=== PATIENT | male | born 1980 | race Caucasian/White ===

== ENCOUNTER 2017-07-14 21:33 | Emergency (ER) | payer OTHER ==
[2017-07-14 22:14] LABS: Basophils % (A) 0 %; Eosinophils # (A) 0.1 k/uL (0-0.7); Eosinophils % (A) 1 %; HCT 41.9 % (39.0-53.0); HGB 14.1 gm/dL (13.0-17.5); Lymphocytes # (A) 2.6 k/uL (1.0-4.8); Lymphocytes % (A) 29 %; MCH 30.2 pg (25.0-35.0); MCHC 33.7 g/dL (31.0-37.0); MCV 89.6 fL (80.0-100.0); Mean Platelet Volume 6.9; Monocytes # (A) 0.4 k/uL (0-1.0); Monocytes % (A) 4 %; Neutrophils # (A) 5.7 k/uL (1.3-7.7); Neutrophils % (A) 64 %; Platelet Count 249 k/uL (150-450); RBC 4.68 m/uL (4.30-5.90); RDW 13.7 % (11.5-15.5); WBC 8.9 k/uL (3.8-10.6)
--- NOTE | 2017-07-14 22:18 | ED ---
Chest Pain HPI - General Chief Complaint: Chest Pain Stated Complaint: Chest Pain/ETOH Time Seen by Provider: 07/14/17 21:52 Source: patient Mode of arrival: EMS Limitations: no limitations - History of Present Illness MD Complaint: chest pain Onset/Timin -: days(s) Onset: during rest Pain Location: substernal, epigastric Pain Radiation: none Severity: moderate Quality: aching, other (Burning) Consistency: constant Improves With: nothing Worsens With: nothing Treatments Prior to Arrival: none - Related Data Allergies Allergy/AdvReac Type Severity Reaction Status Date / Time No Known Allergies Allergy Verified 07/14/17 21:36 Review of Systems ROS Statement: Those systems with pertinent positive or pertinent negative responses have been documented in the HPI. ROS Other: All systems not noted in ROS Statement are negative. Constitutional: Denies: fever, chills Respiratory: Denies: cough, dyspnea Cardiovascular: Reports: chest pain. Denies: palpitations, edema, syncope Gastrointestinal: Denies: abdominal pain, vomiting, diarrhea Genitourinary: Denies: dysuria, hematuria Musculoskeletal: Denies: back pain Skin: Denies: rash Neurological: Denies: headache EKG Findings - EKG Results: EKG: interpreted by JOHNNIE KAY, sinus rhythm (Rate 94 bpm), normal axis, normal QRS, normal ST/T - ME, Pacemaker, Normal: Normal tracing: normal tracing Past Medical History Additional Past Medical History / Comment(s): Alcoholism History of Any Multi-Drug Resistant Organisms: None Reported Past Surgical History: No Surgical Hx Reported Past Psychological History: No Psychological Hx Reported Smoking Status: Current every day smoker Past Alcohol Use History: Abuse, Heavy Past Drug Use History: None Reported General Exam Limitations: no limitations General appearance: alert, in no apparent distress Head exam: Present: atraumatic, normocephalic Eye exam: Present: normal appearance. Absent: scleral icterus, conjunctival injection Respiratory exam: Present: normal lung sounds bilaterally. Absent: respiratory distress, wheezes, rales, rhonchi, stridor Cardiovascular Exam: Present: regular rate, normal rhythm, normal heart sounds. Absent: systolic murmur, diastolic murmur, rubs, gallop GI/Abdominal exam: Present: soft. Absent: distended, tenderness, guarding, rebound, rigid Extremities exam: Present: normal inspection, normal capillary refill. Absent: pedal edema, calf tenderness Back exam: Present: normal inspection. Absent: CVA tenderness (R), CVA tenderness (L) Skin exam: Present: warm, dry, intact, normal color. Absent: rash Course Vital Signs 07/14/17 07/14/17 07/15/17 21:36 22:39 00:00 Temperature 99.8 F H Pulse Rate 86 88 100 Respiratory 18 18 18 Rate Blood Pressure 111/66 88/51 O2 Sat by Pulse 100 98 99 Oximetry 07/15/17 07/15/17 07/15/17 01:45 03:07 04:22 Temperature Pulse Rate 88 85 89 Respiratory 18 18 16 Rate Blood Pressure 87/48 99/59 90/60 O2 Sat by Pulse 98 98 99 Oximetry 07/15/17 07/15/17 07:00 09:00 Temperature 99.2 F Pulse Rate 99 89 Respiratory 20 18 Rate Blood Pressure 91/59 107/68 O2 Sat by Pulse 95 Oximetry Disposition Clinical Impression: Alcohol intoxication Disposition: HOME SELF-CARE Condition: Fair Instructions: Alcohol Intoxication (ED) Is patient prescribed a controlled substance at d/c from ED?: No Referrals: None,Stated [REFERRING] - 1-2 days
[2017-07-14 22:24] LABS: INR 1.1 (<1.2); Partial Thromboplastin Time 22.6 sec (22.0-30.0); Prothrombin Time 10.6 sec (9.0-12.0)
[2017-07-14 22:32] LABS: ALT 46 U/L (21-72); AST 36 U/L (17-59); Albumin 4.3 g/dL (3.5-5.0); Alkaline Phosphatase 73 U/L (38-126); Amylase 57 U/L (30-110); Anion Gap 16 mmol/L; Blood Urea Nitrogen 11 mg/dL (9-20); Calcium 8.9 mg/dL (8.4-10.2); Carbon Dioxide 25 mmol/L (22-30); Chloride 109 mmol/L (98-107); Glucose 82 mg/dL (74-99); Lipase 465 U/L (23-300); Magnesium 2.6 mg/dL (1.6-2.3); Potassium 3.8 mmol/L (3.5-5.1); Sodium 150 mmol/L (137-145); Total Bilirubin 0.5 mg/dL (0.2-1.3); Total Protein 6.4 g/dL (6.3-8.2)
[2017-07-14 22:36] LABS: Creatine Kinase 157 U/L (55-170)
--- NOTE | 2017-07-14 22:38 | XR ---
EXAM: XR Chest, 2 Views CLINICAL HISTORY: ITS.REASON XR Reason: Chest Pain TECHNIQUE: Frontal and lateral views of the chest. COMPARISON: No relevant prior studies available. FINDINGS: Lungs: Unremarkable. No consolidation. Pleural space: Unremarkable. No pneumothorax. Heart: Unremarkable. No cardiomegaly. Mediastinum: Unremarkable. Bones/joints: Unremarkable. IMPRESSION: Normal chest x-rays.
[2017-07-14 22:50] LABS: Creatine Kinase MB 0.7 ng/mL (0.0-2.4); Troponin I <0.012 ng/mL (0.000-0.034)
[2017-07-15 09:01] VITALS: BP 107/68; PULSE 89; RESP 18; TEMP 99.2
== END 2017-07-15 09:01 | disposition home or self-care (01) ==
LOC: EC 21:33
DX: F10.129 Alcohol abuse with intoxication, unspecified (principal); R07.2 Precordial pain; R10.13 Epigastric pain; F17.200 Nicotine dependence, unspecified, uncomplicated
CPT/HCPCS: 36415; 71046; 80053; 80320; 82150; 82550; 82553; 83690; 83735; 84484; 85025; 85610; 85730; 93005; 99285

== ENCOUNTER 2017-09-12 16:37 | Inpatient (IN) | payer MEDICAID, OTHER ==
--- NOTE | 2017-09-12 17:39 | ED ---
General Adult HPI - General Chief complaint: Psychiatric Symptoms Stated complaint: Mental Health Source: patient Mode of arrival: ambulatory Limitations: no limitations - History of Present Illness Initial comments: HPI Macro Chief Complaint: 37-year-old male past medical history of daily EtOH use and history of withdrawal presents with suicidal ideation. History of Present Illness: Patient was brought in by EMS. Patient was contemplating suicide. Patient states that he was clinic [facility]. His friends urged him to come to the emergency department. Patient has history of suicidal ideation the past. He reports having attempted however is not willing to go into detail as to what happened during his last suicide attempt. Patient is a daily EtOH drinker. He states he drinks several alcoholic beverages a day. Patient reports having had delirium tremens in the past. She denies any symptoms at this time. He does report drinking today. Denies any psychiatric history. No auditory or visual hallucinations. No history of psychiatric disease. Past Medical History: Alcohol abuse, alcohol withdrawal Past Surgical History:[reviewed, none to report] Social History: Heavy alcohol drinker on a daily basis, regular tobacco Family History: reviewed and noncontributory The ROS documented in this emergency department record has been reviewed and confirmed by me. Those systems with pertinent positive or negative responses have been documented in the HPI. All other systems are other negative and/or noncontributory. - Related Data Home Medications Medication Instructions Recorded Confirmed Multivitamins, Thera [Multivitamin 1 tab PO DAILY 09/12/17 09/12/17 (formulary)] Allergies Allergy/AdvReac Type Severity Reaction Status Date / Time amoxicillin Allergy Swelling Verified 09/12/17 16:59 Review of Systems ROS Statement: Those systems with pertinent positive or pertinent negative responses have been documented in the HPI. ROS Other: All systems not noted in ROS Statement are negative. Past Medical History Additional Past Medical History / Comment(s): Alcoholism History of Any Multi-Drug Resistant Organisms: None Reported Past Surgical History: No Surgical Hx Reported Past Psychological History: No Psychological Hx Reported Smoking Status: Current every day smoker Past Alcohol Use History: Abuse, Heavy Past Drug Use History: None Reported General Exam - General Exam Comments Initial Comments: Vitals: Signs upon arrival are within acceptable limits PHYSICAL EXAM: General Impression: Alert and oriented x3, not in acute distress HEENT: Normocephalic atraumatic, extra-ocular movements intact, pupils equal and reactive to light bilaterally, mucous membranes moist. Cardiovascular: Heart regular rate and rhythm, S1&S2 audible, no murmurs, rubs or gallops Chest: Lungs clear to auscultation bilaterally, no rhonchi, no wheeze, no rales Abdomen: Bowel sounds present, abdomen soft, non-tender, non-distended, no organomegaly Musculoskeletal: Pulses present and equal in all extremities, no peripheral edema Motor: Power 5/5 bilaterally, no focal deficits noted Neurological: CN II-XII grossly intact, no focal motor or sensory deficits noted Skin: Intact with no visualized rashes Psych: Normal affect and mood Limitations: no limitations Course Vital Signs 09/12/17 09/12/17 09/12/17 16:38 19:12 23:01 Temperature 98.2 F 98.2 F Pulse Rate 120 H 95 72 Respiratory 20 20 20 Rate Blood Pressure 125/91 128/78 120/65 O2 Sat by Pulse 96 95 98 Oximetry Medical Decision Making - Medical Decision Making 37-year-old male with past medical history of alcohol withdrawal and daily alcohol use presents with suicidal ideation. Patient has no psychiatric symptoms. No signs of psychosis at this time. Vital signs are stable. Patient does not appear to be withdrawals at this time. Breathalyzer test shows elevated EtOH level. Rapid urine drug screen obtained. Patient is medically cleared and evaluated by EPS. Patient to be admitted to inpatient psych for further psychiatric care - Lab Data Result diagrams: 09/13/17 07:26 09/13/17 07:26 Lab Results 09/12/17 Range/Units 18:34 Urine Opiates Screen Not Detected (NotDetected) Ur Oxycodone Screen Not Detected (NotDetected) Urine Methadone Screen Not Detected (NotDetected) Ur Propoxyphene Screen Not Detected (NotDetected) Ur Barbiturates Screen Not Detected (NotDetected) U Tricyclic Antidepress Not Detected (NotDetected) Ur Phencyclidine Scrn Not Detected (NotDetected) Ur Amphetamines Screen Not Detected (NotDetected) U Methamphetamines Scrn Not Detected (NotDetected) U Benzodiazepines Scrn Not Detected (NotDetected) Urine Cocaine Screen Not Detected (NotDetected) U Marijuana (THC) Screen Not Detected (NotDetected) Disposition Clinical Impression: Suicidal ideation Disposition: TRANSFER TO PSYCH HOSP/UNIT
[2017-09-12] MEDS ORDERED: LORazepam 1 MG TAB PO STA (18:45)
[2017-09-12 18:59] LABS: Amphetamine Screen,Urine Not Detected (NotDetected); Barbiturate Screen,Urine Not Detected (NotDetected); Benzodiazepines Screen,Urine Not Detected (NotDetected); Cocaine Screen,Urine Not Detected (NotDetected); Methadone Screen, Urine Not Detected (NotDetected); Opiate Screen,Urine Not Detected (NotDetected); Oxycodone Screen, Urine Not Detected (NotDetected); Phencyclidine Screen,Urine Not Detected (NotDetected); Tricyclic Antidepressant,Urine Not Detected (NotDetected); Urn Cannabinoid Scrn Not Detected (NotDetected)
[2017-09-12] MEDS ORDERED: MAGNESIUM HYDROXIDE 2,400 MG/10 ML CUP PO PRN (23:14)
[2017-09-12] MEDS ORDERED: MAG HYDROX/AL HYDROX/SIMETH 30 ML CUP PO PRN (23:14)
[2017-09-12] MEDS ORDERED: ZIPRASIDONE 20 MG VIAL IM PRN (23:14)
[2017-09-12] MEDS ORDERED: ACETAMINOPHEN TAB 325 MG TAB PO PRN (23:14)
[2017-09-12] MEDS ORDERED: LORazepam 2 MG/ML INJ IM PRN (23:16)
[2017-09-12] MEDS: LORazepam 1 MG TAB PO PRN (23:41)
[2017-09-13 07:44] LABS: Basophils % (A) 1 %; Eosinophils # (A) 0.1 k/uL (0-0.7); Eosinophils % (A) 3 %; HCT 45.2 % (39.0-53.0); HGB 15.4 gm/dL (13.0-17.5); Lymphocytes # (A) 1.6 k/uL (1.0-4.8); Lymphocytes % (A) 39 %; MCH 31.2 pg (25.0-35.0); MCV 91.9 fL (80.0-100.0); Mean Platelet Volume 6.7; Monocytes # (A) 0.2 k/uL (0-1.0); Monocytes % (A) 5 %; Neutrophils # (A) 2.1 k/uL (1.3-7.7); Neutrophils % (A) 51 %; Platelet Count 169 k/uL (150-450); RBC 4.92 m/uL (4.30-5.90); RDW 14.7 % (11.5-15.5); WBC 4.1 k/uL (3.8-10.6)
[2017-09-13 08:02] LABS: ALT 86 U/L (21-72); AST 105 U/L (17-59); Alkaline Phosphatase 63 U/L (38-126); Anion Gap 10 mmol/L; Blood Urea Nitrogen 14 mg/dL (9-20); Calcium 9.9 mg/dL (8.4-10.2); Carbon Dioxide 29 mmol/L (22-30); Chloride 104 mmol/L (98-107); Glucose 96 mg/dL (74-99); Potassium 4.7 mmol/L (3.5-5.1); Sodium 143 mmol/L (137-145); Total Bilirubin 2.4 mg/dL (0.2-1.3); Total Protein 6.1 g/dL (6.3-8.2)
[2017-09-13] MEDS: NICOTINE 14MG/24HR PATCH TRANSDERM SCH ×2 (09:24→12:04)
[2017-09-13] MEDS ORDERED: DIPHENOX-ATROP 2.5-0.025 MG 1 EACH TAB PO PRN (09:48)
--- NOTE | 2017-09-13 09:48 | P.HP ---
Psychiatric H&P - . H&P Date: 09/13/17 History & Physical: Identification data: The patient is a 37-year-old single occasion male who has history of alcohol use disorder. He presents psychiatric unit voluntarily with complaints of depression and suicidal ideation. History of present illness: A friend brought him to the ER yesterday. The patient told his friend that he wanted to and talked about wanting to jump off the bridge. He told the EPS nurse that he began having thoughts of suicide after he lost his apartment and lost his phone. He described a history of alcohol use beginning in early adolescence of (around 13 or 14 years old). In retrospect, his alcohol use became a problem when he is 17 years old. He denied significant period of abstinence outside of a substance abuse treatment program. He lived at a three-quarter house, [facility], after he returned to [place] in March 2017 until July 2017. He was out of the [facility] for 2 weeks when he relapsed to alcohol. He went to [facility] for detox and after he completed the program he returned to [facility]. He moved into a flat with a friend last . One of the rules of the apartment was no alcohol or drinking on the premises. He relapsed alcohol the day after he moved into the apartment. The landlord learned of his drinking and told him to leave. He has history of severe alcohol withdrawal including alcohol withdrawal seizures and alcohol withdrawal delirium. He has had medical admissions due to the severity of the alcohol withdrawal. He currently describes nausea, tremor, sweating and increased anxiety. He denied currently experiencing tactile, auditory or visual disturbances. He recognizes alcohol use is a problem but is unable to control his use of suddenly structured program. He denied use of other drugs to get high, help him sleep or changes mood. He described feelings of depression including sadness, hopelessness, helplessness and worthlessness. He is self reproach for and ruminates over his alcohol use and the consequences of his alcohol use. He did not express delusions of guilt and denied hearing accusatory denunciatory voices or experiencing threatening visual hallucinations. He has thoughts of and at times wishes he were but denied history of suicide attempts or gestures. He has difficulty falling and staying asleep. He believes that he is recently lost weight. He described tiredness and fatigue. He denied obsessions or compulsions. He denied anxiety that built up to crescendo consistent with panic attacks. He denied history of psychotic symptoms such as auditory or visual or olfactory hallucinations (outside of alcohol withdrawal), ideas reference etc. Past psychiatric history: He denied prior psychiatric hospitalizations. He denied history of mental health treatment. Substance use history: He attended a total of 6 alcohol rehabilitation programs- [facility] twice, [facility] twice and once at [facility]. He has resided in several three-quarter houses. Medical history: Alcohol withdrawal seizures and alcohol withdrawal delirium Family psychiatric/substance use history: He states that his father, uncles and grandfather all had alcohol use problems. Legal history: He believes he has a warrant for charges of open intoxication. He does not have a license and never had an OWI charge. Social history: He was born and raised in [place]. He is single. He has 3 children ages 12, 7 and 6 with a long-term girlfriend. They're living with the girlfriend in [place]. He moved to [place] from his 2016 at the at the behest of his girlfriend. She thought that they moved from [place] with help with his alcohol use problems. However he continue drinking in [place] and she asked him to leave. He has worked unskilled factory jobs. He is currently unemployed and has no income. Mental status examination he presented as a tall thin, almost cachectic, male with male pulled pattern balding. He made eye contact and appeared to attend to the interview. He had no prominent physical abnormalities or distinguishing features. He had a distressed facial expression. He was alert and oriented to person, place and time. He showed psychomotor retardation but no abnormal movements. Speech was spontaneous with decreased rate, rhythm and volume. His affect was depressed and unreactive. He described wishes but denied current suicidal ideation. He denied homicidal ideation. He expressed feelings of hopelessness, helplessness and worthlessness. He did not express ideas reference, paranoid ideation or delusional thoughts. His thinking was concrete but his associations were coherent and logical. He denied hallucinations and did not appear to be responding to internal stimuli. Allergies Allergy/AdvReac Type Severity Reaction Status Date / Time amoxicillin Allergy Swelling Verified 09/12/17 16:59 Vital Signs Temp 97.9 F 09/13/17 06:08 Pulse 62 09/13/17 06:08 Resp 16 09/13/17 06:08 BP 109/66 09/13/17 06:08 Pulse Ox 94 L 09/12/17 23:35 Intake & Output 09/12/17 09/13/17 09/13/17 18:59 06:59 18:59 Weight 58.967 kg 53.932 kg Laboratory Last Values WBC 4.1 k/uL (3.8-10.6) 09/13/17 07:26 RBC 4.92 m/uL (4.30-5.90) 09/13/17 07:26 Hgb 15.4 gm/dL (13.0-17.5) 09/13/17 07:26 Hct 45.2 % (39.0-53.0) 09/13/17 07:26 MCV 91.9 fL (80.0-100.0) 09/13/17 07:26 MCH 31.2 pg (25.0-35.0) 09/13/17 07: MCHC 34.0 g/dL (31.0-37.0) 09/13/17 07:26 RDW 14.7 % (11.5-15.5) 09/13/17 07:26 Plt Count 169 k/uL (150-450) 09/13/17 07:26 Neutrophils % 51 % 09/13/17 07:26 Lymphocytes % 39 % 09/13/17 07:26 Monocytes % 5 % 09/13/17 07:26 Eosinophils % 3 % 09/13/17 07:26 Basophils % 1 % 09/13/17 07:26 Neutrophils # 2.1 k/uL (1.3-7.7) 09/13/17 07:26 Lymphocytes # 1.6 k/uL (1.0-4.8) 09/13/17 07:26 Monocytes # 0.2 k/uL (0-1.0) 09/13/17 07:26 Eosinophils # 0.1 k/uL (0-0.7) 09/13/17 07:26 Basophils # 0.0 k/uL (0-0.2) 09/13/17 07:26 Sodium 143 mmol/L (137-145) 09/13/17 07:26 Potassium 4.7 mmol/L (3.5-5.1) 09/13/17 07:26 Chloride 104 mmol/L (98-107) 09/13/17 07:26 Carbon Dioxide 29 mmol/L (22-30) 09/13/17 07:26 Anion Gap 10 mmol/L 09/13/17 07:26 BUN 14 mg/dL (9-20) 09/13/17 07:26 Creatinine 0.91 mg/dL (0.66-1.25) 09/13/17 07:26 Est GFR (CKD-EPI)AfAm >90 (>60 ml/min/1.73 sqM) 09/13/17 07:26 Est GFR (CKD-EPI)NonAf >90 (>60 ml/min/1.73 sqM) 09/13/17 07:26 Glucose 96 mg/dL (74-99) 09/13/17 07:26 Calcium 9.9 mg/dL (8.4-10.2) 09/13/17 07:26 Total Bilirubin 2.4 mg/dL (0.2-1.3) H 09/13/17 07:26 AST 105 U/L (17-59) H 09/13/17 07:26 ALT 86 U/L (21-72) H 09/13/17 07:26 Alkaline Phosphatase 63 U/L (38-126) 09/13/17 07:26 Total Protein 6.1 g/dL (6.3-8.2) L 09/13/17 07:26 Albumin 4.0 g/dL (3.5-5.0) 09/13/17 07:26 TSH 1.600 mIU/L (0.465-4.680) 09/13/17 07:26 Urine Opiates Screen Not Detected (NotDetected) 09/12/17 18:34 Ur Oxycodone Screen Not Detected (NotDetected) 09/12/17 18:34 Urine Methadone Screen Not Detected (NotDetected) 09/12/17 18:34 Ur Propoxyphene Screen Not Detected (NotDetected) 09/12/17 18:34 Ur Barbiturates Screen Not Detected (NotDetected) 09/12/17 18:34 U Tricyclic Antidepress Not Detected (NotDetected) 09/12/17 18:34 Ur Phencyclidine Scrn Not Detected (NotDetected) 09/12/17 18:34 Ur Amphetamines Screen Not Detected (NotDetected) 09/12/17 18:34 U Methamphetamines Scrn Not Detected (NotDetected) 09/12/17 18:34 U Benzodiazepines Scrn Not Detected (NotDetected) 09/12/17 18:34 Urine Cocaine Screen Not Detected (NotDetected) 09/12/17 18:34 U Marijuana (THC) Screen Not Detected (NotDetected) 09/12/17 18:34 09/13/17 09:27 Assessment and Plan Assessment: He is a 37-year-old single male with a history of alcohol use disorder. He presented to the psychiatric unit with complaints of depression and suicidal ideation. He has no history of mental health treatment but he is had multiple substance abuse treatment episodes. He denied history of use of other drugs and his urine drug screen was negative for drugs of abuse. He history of severe alcohol withdrawal, cocaine by seizures and delirium. He may be treated inpatient psychiatric unit unless he experiences worsening alcohol withdrawal symptoms. He will be transferred to the medical unit if he experienced a seizure or has signs and symptoms of a delirium. 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 Safety precautions. CIWA with Ativan for alcohol withdrawal. Lomotil and Zofran for alcohol withdrawal symptoms. Monitor for signs and symptoms of delirium. Consult medicine for initial physical exam and medical history. tobacco farmworker to complete initial psychosocial assessment. Evaluate clinical status response to treatment daily basis. Encourage participation in therapeutic groups and activities.
[2017-09-13 09:50] VITALS: BMI 15.3
[2017-09-13] MEDS: LORazepam 1 MG TAB PO PRN ×2 (12:04→21:17)
[2017-09-13] MEDS: MULTIVITAMINS, THERA 1 EACH TAB PO SCH (12:04)
[2017-09-13] MEDS: ONDANSETRON 4 MG TAB PO PRN (12:04)
--- NOTE | 2017-09-13 14:15 | P.CONS ---
History of Present Illness - Reason for Consult Medical clearance - History of Present Illness 35-year-old admitted secondary to severe depression, suicidal ideations. Patient doesn't have any major medical problems upon questioning he did complain of some psychosomatic symptoms of one episode of diarrhea 1 episode of nausea. Patient was bit tachycardic secondary to anxiety. TSH within normal limits. Review of Systems REVIEW OF SYSTEMS: CONSTITUTIONAL: No fever, no malaise, no fatigue. HEENT: No recent visual problems or hearing problems. Denied any sore throat. CARDIOVASCULAR: No chest pain, orthopnea, PND, no palpitations, no syncope. PULMONARY: No shortness of breath, no cough, no hemoptysis. GASTROINTESTINAL: No diarrhea, no nausea, no vomiting, no abdominal pain. Normoactive bowel sounds. NEUROLOGICAL: No headaches, no weakness, no numbness. HEMATOLOGICAL: Denies any bleeding or petechiae. GENITOURINARY: Denies any burning micturition, frequency, or urgency. MUSCULOSKELETAL/RHEUMATOLOGICAL: Denies any joint pain, swelling, or any muscle pain. ENDOCRINE: Denies any polyuria or polydipsia. The rest of the 14-point review of systems is negative. Past Medical History Additional Past Medical History / Comment(s): Alcoholism History of Any Multi-Drug Resistant Organisms: None Reported Past Surgical History: No Surgical Hx Reported Past Psychological History: No Psychological Hx Reported Smoking Status: Current every day smoker Past Alcohol Use History: Abuse, Heavy Past Drug Use History: None Reported Medications and Allergies Home Medications Medication Instructions Recorded Confirmed Type Multivitamins, Thera [Multivitamin 1 tab PO DAILY 09/12/17 09/12/17 History (formulary)] Allergies Allergy/AdvReac Type Severity Reaction Status Date / Time amoxicillin Allergy Swelling Verified 09/12/17 16:59 Physical Exam Vitals: Vital Signs Temp Pulse Pulse Pulse Resp BP BP 09/13/17 12:07 131 H 18 124/85 09/13/17 06:08 97.9 F 62 16 09/12/17 23:35 98.2 F 105 H 16 09/12/17 23:01 98.2 F 72 20 120/65 09/12/17 19:12 95 20 128/78 09/12/17 16:38 98.2 F 120 H 20 125/91 BP Pulse Ox 09/13/17 12:07 09/13/17 06:08 109/66 07/04/18 23:35 116/82 94 L 09/12/17 23:01 98 09/12/17 19:12 95 09/12/17 16:38 96 Intake and Output 09/12/17 09/13/17 09/13/17 22:59 06:59 14:59 Other: Weight 58.967 kg 53.932 kg 53.932 kg PHYSICAL EXAMINATION: GENERAL: The patient is alert and oriented x3, not in any acute distress. Thin built HEENT: Pupils are round and equally reacting to light. EOMI. No scleral icterus. No conjunctival pallor. Normocephalic, atraumatic. No pharyngeal erythema. No thyromegaly. CARDIOVASCULAR: S1 and S2 present. No murmurs, rubs, or gallops. PULMONARY: Chest is clear to auscultation, no wheezing or crackles. ABDOMEN: Soft, nontender, nondistended, normoactive bowel sounds. No palpable organomegaly. MUSCULOSKELETAL: No joint swelling or deformity. EXTREMITIES: No cyanosis, clubbing, or pedal edema. NEUROLOGICAL: Gross neurological examination did not reveal any focal deficits. SKIN: No rashes. Results CBC & Chem 7: 09/13/17 07:26 09/13/17 07:26 Labs: Abnormal Lab Results - Last 24 Hours (Table) 09/13/17 Range/Units 07:26 Total Bilirubin 2.4 H (0.2-1.3) mg/dL AST 105 H (17-59) U/L ALT 86 H (21-72) U/L Total Protein 6.1 L (6.3-8.2) g/dL Assessment and Plan Plan: -Depression and suicidal aeration: Management as per primary service -Sinus tachycardia secondary to anxiety -Nicotine abuse: Counseling was provided -Alcohol abuse counseling was provided Thank you for letting me participate in this patient's care will set up at this time no further recommendations from medicine call us back if needed
[2017-09-14] MEDS: NICOTINE 14MG/24HR PATCH TRANSDERM SCH ×2 (08:20→17:31)
[2017-09-14] MEDS: MULTIVITAMINS, THERA 1 EACH TAB PO SCH (08:20)
[2017-09-14] MEDS: ONDANSETRON 4 MG TAB PO PRN (08:20)
[2017-09-14] MEDS: LORazepam 1 MG TAB PO PRN ×3 (08:20→22:30)
[2017-09-14 11:21] LABS: Amorphous Sediment,Urine Occasional /hpf; Appearance,Urine Turbid (Clear); Bilirubin,Urine Negative (Negative); Blood,Urine Negative (Negative); Color,Urine Yellow; Glucose,Urine (UA) Negative (Negative); Ketones,Urine 1+ (Negative); Leukocyte Esterase,Urine Small (Negative); Mucus,Urine Many /hpf; Nitrite,Urine Negative (Negative); PH, Urine 6.5 (5.0-8.0); Protein,Urine Trace (Negative); RBC,Urine 3 /hpf (0-5); WBC,Urine 8 /hpf (0-5)
--- NOTE | 2017-09-14 16:51 | P.PN ---
Subjective Progress Note Date: 09/14/17 Principal diagnosis: Alcohol withdrawal, alcohol use disorder severe, alcohol induced depressive disorder I reviewed the medical record, interviewed the patient and discussed his treatment and treatment plan during team meeting. He complained of feeling weak and tired. He denied feeling depressed or having thoughts of or suicide. He denied experiencing such withdrawal symptoms as auditory, visual or tactile disturbances. His withdrawal symptoms, according to CIWA scores, having minimal to mild. He spends most of his time in bed. He does not participate in therapeutic groups or activities. He does not initiate social contact with either staff or peers. He called [facility] and obtained in remission for residential substance abuse treatment on 09/17/2017. Medicine consult appreciated. Objective - Vital Signs Vital signs: Vital Signs Temp 97.6 F 09/14/17 06:24 Pulse 129 H 09/14/17 08:55 Resp 20 09/14/17 08:55 BP 126/79 09/14/17 08:55 Pulse Ox 98 09/14/17 06:24 Intake & Output 09/13/17 09/14/17 09/14/17 18:59 06:59 18:59 Weight 53.932 kg - Psychiatric Psychiatric Comment(s): He presented as a thin and lethargic-appearing middle-aged male. He made eye contact and attended to the interview. He had a blunted facial expression. He showed psychomotor retardation but no abnormal movements. Her speech was not spontaneous and had decreased rate, rhythm and volume. His affect was blunted but stable and appropriate. He denied suicidal ideation or wishes. He denied feeling hopeless, helpless or worthless. He did not express phobias, ideas reference, paranoid ideation or delusions. His thinking was concrete but his associations were coherent and logical. He denied hallucinations and did not appear to be responding to internal stimuli. - Labs CBC & Chem 7: 09/13/17 07:26 09/13/17 07:26 Labs: Abnormal Lab Results - Last 24 Hours (Table) 09/14/17 Range/Units 11:00 Urine Protein Trace H (Negative) Urine Ketones 1+ H (Negative) Ur Leukocyte Esterase Small H (Negative) Urine WBC 8 H (0-5) /hpf Amorphous Sediment Occasional H (None) /hpf Urine Mucus Many H (None) /hpf Assessment and Plan Assessment: He is having minimal to mild alcohol withdrawal symptoms. He recognizes the severity of his alcohol use problem and is arrange for residential alcohol rehabilitation treatment (1) Suicidal ideation Current Visit: Yes Status: Resolved Priority: Low Code(s): R45.851 - SUICIDAL IDEATIONS SNOMED Code(s): 5060270 (2) Alcohol withdrawal Current Visit: Yes Status: Acute Priority: Low Code(s): F10.239 - ALCOHOL DEPENDENCE WITH WITHDRAWAL, UNSPECIFIED SNOMED Code(s): 106001325 (3) Alcohol use disorder, severe, dependence Current Visit: Yes Status: Chronic Priority: High Code(s): F10.20 - ALCOHOL DEPENDENCE, UNCOMPLICATED SNOMED Code(s): 581726353 (4) Alcohol-induced depressive disorder with moderate or severe use disorder Current Visit: Yes Status: Acute Priority: Medium Code(s): F10.24 - ALCOHOL DEPENDENCE WITH ALCOHOL-INDUCED MOOD DISORDER; F32.89 - OTHER SPECIFIED DEPRESSIVE EPISODES SNOMED Code(s): 08468924 Plan: Continue psychiatric unit. Safety precautions. CIWA with Ativan for alcohol withdrawal. Lomotil and Zofran for alcohol withdrawal symptoms. Monitor for signs and symptoms of delirium. Discharge 09/17/2017 to [facility] for restrictive substance abuse treatment. Evaluate clinical status response to treatment daily basis. Encourage participation in therapeutic groups and activities.
[2017-09-15] MEDS: MULTIVITAMINS, THERA 1 EACH TAB PO SCH (08:46)
[2017-09-15] MEDS: NICOTINE 14MG/24HR PATCH TRANSDERM SCH (08:46)
[2017-09-15] MEDS: LORazepam 1 MG TAB PO PRN ×2 (08:47→15:24)
[2017-09-15] MEDS: DIVALPROEX ER 500 MG TAB.ER.24H PO SCH ×2 (15:24→20:25)
[2017-09-15] MEDS ORDERED: LORazepam 1 MG TAB PO PRN (16:21)
--- NOTE | 2017-09-15 17:37 | PN ---
PROGRESS NOTE DATE OF SERVICE: 09/15/2017 CHIEF COMPLAINT: The patient had depression with thoughts of suicide. He has long-term problems with alcohol use with a number of past treatment interventions. He has been actively drinking. INTERVAL HISTORY: Patient has been doing fair. He had a quiet evening last night. He slept fair. He said he was restless and woke on and off. Today he has been up. He comes out in the day area. He does not interact too much with others. He has not been attending groups at all. He is focused on admission to [facility] on Sunday. He presumably has an 11 am admission interview. He says he has been at [facility] in the past and feels that there is at least one staff person who has been very helpful for him. He notes that in the past, he has been able to have periods of sobriety, though when he gets to a point where he feels he is just getting things together for himself, he relapses into drinking, which he acknowledges is some kind of self sabotage. He was with a woman for a number of years. The two of them have 3 children together, though they never were . In February, she moved to [place]. He continues to be in touch with her as well as the children. He is hopeful to move to [place] at some time in the not too distant future to be near his children. He dropped out of school in the 9th grade. 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 He reports that he has had significant withdrawal issues in the past. He said he has had delirium tremens, though he was not able to provide supportive information to reliably established that diagnosis. He reports that he has had withdrawal related seizures including one seizure nine days post alcohol use. Vital signs have been stable. His CIWA scores since admission have been 10 or lower and have progressively declined. He continues to report depression, though also acknowledges much of it is related to discouragement he has about his repeated relapses to drinking. He received 1 p.r.n. dose of Ativan today, though has not had the use for withdrawal issues since admission. MENTAL STATUS: Patient was somewhat restless. He gave fair eye contact. He answered questions with brief responses. His affect was anxious. He was appropriate in his manner. His mood was depressed. He was moderately distressed. ASSESSMENT: I reviewed the record and reviewed progress with staff. The patient was interviewed and will continue the current diagnosis and treatment plan. We will continue to engage the patient in individual and group therapeutic activities. I will switch the patient to only Ativan 1 mg b.i.d. p.r.n. for acute agitation or anxiety. Will discontinue use of Ativan for any withdrawal symptoms, which have not surfaced. I will start the patient on Depakote 500 mg twice a day as prophylactic for alcohol-related withdrawal seizures which she has a history of in the past. I discussed with the patient that it would be appropriate for him to continue on Depakote for at least 2 months. We discussed Vivitrol as an adjunct to treatment. I would add a diagnosis of posttraumatic stress disorder. Will continue to focus on stabilization and discharge planning. PATRICIO / JAVI: [id number] /
[2017-09-16] MEDS: NICOTINE 14MG/24HR PATCH TRANSDERM SCH (09:02)
[2017-09-16] MEDS: DIVALPROEX ER 500 MG TAB.ER.24H PO SCH ×2 (09:02→20:37)
[2017-09-16] MEDS: MULTIVITAMINS, THERA 1 EACH TAB PO SCH (12:52)
--- NOTE | 2017-09-16 19:14 | PN ---
PROGRESS NOTE DATE OF SERVICE: 09/16/2017. CHIEF COMPLAINT: The patient had depression with suicide thoughts. He has long-term problems with alcohol use with a number of past treatment interventions. He has been actively drinking. INTERVAL HISTORY: Patient has been doing fair. He had a quiet evening last night. He said he slept fairly well. Today he has been up. Mostly he has been calling people trying to make arrangements for transportation either today to get to a fpc where he could connect with the bus to [facility] or plans for tomorrow morning to get a ride directly to [facility]. He has shown improvement in his mood. He feels a little calmer overall stating that he is certain about getting into [facility], which is the most important thing for him at this point. He attended one group yesterday and so far one group today. He has been cooperative. He tolerates his psychotropic medications. He was started yesterday on Depakote as prophylaxis for risk for alcohol withdrawal related seizures, which he has had in the past. MENTAL STATUS: Patient gave good eye contact. Psychomotor activity was a little restless. Speech was clear. He answered questions with direct responses. His affect was a little blunted. His mood was quiet. He did appear to be significantly distressed. ASSESSMENT: I will continue the current diagnosis and treatment plan. I will continue psychotropic medications the same. The patient has an intake evaluation at [facility] at 11:00 am tomorrow. Staff is working on transportation arrangements. MMCAREY / JAVI: [id number] /
[2017-09-17 06:34] VITALS: BP 90/57; PULSE 69; RESP 18; TEMP 97.7
[2017-09-17] MEDS: NICOTINE 14MG/24HR PATCH TRANSDERM SCH (09:26)
[2017-09-17] MEDS: DIVALPROEX ER 500 MG TAB.ER.24H PO SCH (09:26)
--- NOTE | 2017-09-17 09:39 | P.DS ---
Providers Date of admission: 09/12/17 22:57 Expected date of discharge: 09/17/17 Attending physician: Ashia Juarez MD Consults: 09/12/17 23:14 Consult Physician Routine Consulting Provider: Madyson Hong Consult Reason/Comments: follow up [facility] & P Do you want consulting provider notified?: Yes Primary care physician: [facility] Course: Discharge Diagnosis: Alcohol use disorder, severe Reason for Admission: Patient is a 37-year-old male who presented to the emergency room after he reports that he began using alcohol for 3 days prior to his admission. Patient states that he had recently moved into an apartment and began celebrating after having a month of sobriety. States that he was drinking for 3 days and brought himself to the hospital because he was feeling down and upset about his use of alcohol. Patient had been talking about wanting to and talked about wanting to jump off the bridge. He states that he had lost his apartment and his phone and that is when he began having suicidal thoughts. Patient has a history of alcohol use that began as an early adolescent and he has had several periods of abstinence in the past. Patient was in the [facility] and relapsed after 2 weeks. He went to [place] for detox and return to the [facility] and had moved into an apartment the prior to admission. Patient began using alcohol a day after moving into the apartment and the landlord asked him to leave. Patient has a history of alcohol withdrawal including seizures and delirium. Patient has required medical admissions due to his alcohol withdrawal. Patient denied any other drug use. Patient states that when he is drinking he begins to feel depressed, sad and hopeless and ruminates about his alcohol use. Patient did not admit to any auditory or visual hallucinations on admission and states that when he is intoxicated he thinks of suicide but has no history of suicide attempts or gestures. Patient reports a sleep disorder while using alcohol. Patient was not eating correctly during his time of alcohol use. Patient denied any obsessive or compulsive symptoms, patient denied any psychotic symptoms, no history of manic symptoms and the patient states that he does have increasing anxiety while using alcohol. Patient denies any prior psychiatric hospitalizations and no prior outpatient mental health treatment. Patient has been in 6 prior alcohol rehab programs and has resided in sober living. Hospital Course: patient was admitted on a voluntary basis, placed on routine observation, group and activity therapy were also ordered as well as a medical consultation was performed. Patient also had routine laboratory studies. Patient was placed on alcohol to prevent withdrawal symptoms. Patient had mildly elevated liver enzymes which were felt to be secondary to his alcohol use. Patient had no seizures or symptoms of delirium while on the inpatient unit. Patient was begun on Depakote extended release 500 mg twice a day to prevent alcohol withdrawal seizures and the patient reported that he was feeling better. Patient reported no further suicidal ideation, he reported no symptoms of alcohol withdrawal and the patient reported that his sleep and appetite improved. Patient wanted to return to [place] and set up an intake appointment on September 27 at 11 AM. Laboratory Last Values WBC 4.1 k/uL (3.8-10.6) 09/13/17 07: RBC 4.92 m/uL (4.30-5.90) 09/13/17 07:26 Hgb 15.4 gm/dL (13.0-17.5) 09/13/17 07:26 Hct 45.2 % (39.0-53.0) 09/13/17 07:26 MCV 91.9 fL (80.0-100.0) 09/13/17 07:26 MCH 31.2 pg (25.0-35.0) 09/13/17 07:26 MCHC 34.0 g/dL (31.0-37.0) 09/13/17 07:26 RDW 14.7 % (11.5-15.5) 09/13/17 07:26 Plt Count 169 k/uL (150-450) 09/13/17 07:26 Neutrophils % 51 % 09/13/17 07:26 Lymphocytes % 39 % 09/13/17 07:26 Monocytes % 5 % 09/13/17 07:26 Eosinophils % 3 % 09/13/17 07:26 Basophils % 1 % 09/13/17 07:26 Neutrophils # 2.1 k/uL (1.3-7.7) 09/13/17 07:26 Lymphocytes # 1.6 k/uL (1.0-4.8) 09/13/17 07:26 Monocytes # 0.2 k/uL (0-1.0) 09/13/17 07:26 Eosinophils # 0.1 k/uL (0-0.7) 09/13/17 07:26 Basophils # 0.0 k/uL (0-0.2) 09/13/17 07:26 Sodium 143 mmol/L (137-145) 09/13/17 07:26 Potassium 4.7 mmol/L (3.5-5.1) 09/13/17 07:26 Chloride 104 mmol/L (98-107) 09/13/17 07:26 Carbon Dioxide 29 mmol/L (22-30) 09/13/17 07:26 Anion Gap 10 mmol/L 09/13/17 07:26 BUN 14 mg/dL (9-20) 09/13/17 07:26 Creatinine 0.91 mg/dL (0.66-1.25) 09/13/17 07:26 Est GFR (CKD-EPI)AfAm >90 (>60 ml/min/1.73 sqM) 09/13/17 07:26 Est GFR (CKD-EPI)NonAf >90 (>60 ml/min/1.73 sqM) 09/13/17 07:26 Glucose 96 mg/dL (74-99) 09/13/17 07:26 Calcium 9.9 mg/dL (8.4-10.2) 09/13/17 07:26 Total Bilirubin 2.4 mg/dL (0.2-1.3) H 09/13/17 07:26 AST 105 U/L (17-59) H 09/13/17 07:26 ALT 86 U/L (21-72) H 09/13/17 07:26 Alkaline Phosphatase 63 U/L (38-126) 09/13/17 07:26 Total Protein 6.1 g/dL (6.3-8.2) L 09/13/17 07:26 Albumin 4.0 g/dL (3.5-5.0) 09/13/17 07:26 TSH 1.600 mIU/L (0.465-4.680) 09/13/17 07:26 Urine Color Yellow 09/14/17 11:00 Urine Appearance Turbid (Clear) 09/14/17 11:00 Urine pH 6.5 (5.0-8.0) 09/14/17 11:00 Ur Specific [place] 1.020 (1.001-1.035) 09/14/17 11:00 Urine Protein Trace (Negative) H 09/14/17 11:00 Urine Glucose (UA) Negative (Negative) 09/14/17 11:00 Urine Ketones 1+ (Negative) H 09/14/17 11:00 Urine Blood Negative (Negative) 09/14/17 11:00 Urine Nitrite Negative (Negative) 09/14/17 11:00 Urine Bilirubin Negative (Negative) 09/14/17 11:00 Urine Urobilinogen 4.0 mg/dL (<2.0) 09/14/17 11:00 Ur Leukocyte Esterase Small (Negative) H 09/14/17 11:00 Urine RBC 3 /hpf (0-5) 09/14/17 11:00 Urine WBC 8 /hpf (0-5) H 09/14/17 11:00 Amorphous Sediment Occasional /hpf (None) H 09/14/17 11:00 Urine Mucus Many /hpf (None) H 09/14/17 11:00 Urine Opiates Screen Not Detected (NotDetected) 09/12/17 18:34 Ur Oxycodone Screen Not Detected (NotDetected) 09/12/17 18:34 Urine Methadone Screen Not Detected (NotDetected) 09/12/17 18:34 Ur Propoxyphene Screen Not Detected (NotDetected) 09/12/17 18:34 Ur Barbiturates Screen Not Detected (NotDetected) 09/12/17 18:34 U Tricyclic Antidepress Not Detected (NotDetected) 09/12/17 18:34 Ur Phencyclidine Scrn Not Detected (NotDetected) 09/12/17 18:34 Ur Amphetamines Screen Not Detected (NotDetected) 09/12/17 18:34 U Methamphetamines Scrn Not Detected (NotDetected) 09/12/17 18:34 U Benzodiazepines Scrn Not Detected (NotDetected) 09/12/17 18:34 Urine Cocaine Screen Not Detected (NotDetected) 09/12/17 18:34 U Marijuana (THC) Screen Not Detected (NotDetected) 09/12/17 18:34 Allergies amoxicillin Allergy (Verified 09/16/17 22:19) Swelling Discharge Mental Status: Appearance/Attitude: Patient is appropriately dressed, makes good eye contact and was cooperative. Behavior: Patient did not display any psychomotor agitation or retardation. Patient reported and did not display any signs of tremulousness. Speech/Language: Patient's speech was spontaneous of normal volume and rhythm and he was coherent. Thought Process: Patient's thoughts were goal-directed there is no evidence of loose association or flight of ideas. Thought Content: Patient denied any auditory or visual hallucinations and no delusions were elicited. Patient reported that his appetite and sleep had improved. Patient stated that he was feeling much better. Suicidal/Homicidal Ideation: Patient denied any current suicidal or homicidal ideation. Sensorium/Cognition: Patient was alert and oriented to person, place, and time and his recent and remote memory were grossly intact. Mood/Affect: Patient's mood was euthymic and his affect was appropriate Insight/Judgment: Patient's insight and judgment are fair. Risk Assessment: Patient's risk for readmission is moderate should he return to using alcohol. Discharge Plan: patient will be discharged and will attend an intake appointment at [place] today, September 17 at 11 AM. Patient will continue on Depakote extended release 500 mg twice a day for seizure prevention. Patient was encouraged to remain sober and follow-up at [place]. Patient Condition at Discharge: Stable Plan - Discharge Summary Discharge Rx Participant: No New Discharge Prescriptions: New Divalproex ER [Depakote ER] 500 mg PO BID #28 tab.er.24h Continue Multivitamins, Thera [Multivitamin (formulary)] 1 tab PO DAILY Discharge Medication List Multivitamins, Thera [Multivitamin (formulary)] 1 tab PO DAILY 09/12/17 [History ] Divalproex ER [Depakote ER] 500 mg PO BID #28 tab.er.24h 09/17/17 [Rx] Follow up Appointment(s)/Referral(s): Regina Juarez MD [Primary Care Provider] - 1-2 days Discharge Disposition: HOME SELF-CARE
== END 2017-09-17 10:24 | disposition home or self-care (01) | DRG 897 ==
LOC: EC 16:37 → 3MHU 22:57
PROVIDERS: ADMIT Psychiatry & Neurology Psychiatry; ATTEND Psychiatry & Neurology Psychiatry
DX: F10.24 Alcohol dependence with alcohol-induced mood disorder (principal); R45.851 Suicidal ideations; R64 Cachexia; F10.239 Alcohol dependence with withdrawal, unspecified; F43.10 Post-traumatic stress disorder, unspecified; F17.200 Nicotine dependence, unspecified, uncomplicated; R74.8 Abnormal levels of other serum enzymes; F41.9 Anxiety disorder, unspecified; Z56.0 Unemployment, unspecified; Z88.0 Allergy status to penicillin
CPT/HCPCS: 80053; 80306; 81001; 82075; 84443; 85025; 99285

== ENCOUNTER 2018-08-29 11:17 | Emergency (ER) | payer OTHER ==
[2018-08-29 11:29] VITALS: RESP 18; TEMP 97.5
[2018-08-29] MEDS ORDERED: SODIUM CHLORIDE 0.9% 1,000 ML IV ONE (11:51)
[2018-08-29] MEDS ORDERED: SODIUM CHLORIDE 0.9% 500 ML 500 ML IV ONE (11:51)
[2018-08-29] MEDS ORDERED: ASPIRIN-ACET-CAFF 250-250-65MG 1 EACH TAB PO STA (11:55)
--- NOTE | 2018-08-29 11:57 | ED ---
General Adult HPI - General Chief complaint: Seizure Stated complaint: ETOH, Seizure Time Seen by Provider: 08/29/18 11:25 Source: patient, EMS, RN notes reviewed Mode of arrival: EMS Limitations: no limitations - History of Present Illness Initial comments: This is a 38-year-old male who presents emergency Department after a drinking binge. Patient states an alcoholic and he hasn't drink in 6 months. Patient states that last week his girlfriend broke up from he has been drinking ever since. Patient states he had 18 beers yesterday and some wine. Patient states his last drink was about 6:00 last night. Patient states he went to bed woke up this morning on the floor with a very bad headache and felt like he may have had a seizure even though no one witnessed a seizure. Patient continues to complain of a moderate headache patient denies any vomiting patient denies any chest pain palpitations difficulty breathing shortness of breath per patient denies any numbness weakness. Patient denies any visual disturbance or speech disturbance. Patient denies abdominal pain. Patient denies any injury or trauma that he knows of. Patient states she called EMS as he was afraid he might of had a seizure. Patient states she supposed to go to rehab tomorrow. - Related Data Home Medications Medication Instructions Recorded Confirmed No Known Home Medications 08/29/18 08/29/18 Allergies Allergy/AdvReac Type Severity Reaction Status Date / Time amoxicillin Allergy Swelling Verified 08/29/18 11:43 Review of Systems ROS Statement: Those systems with pertinent positive or pertinent negative responses have been documented in the HPI. ROS Other: All systems not noted in ROS Statement are negative. Past Medical History Additional Past Medical History / Comment(s): Alcoholism with seizure in 2018 from withdrawal History of Any Multi-Drug Resistant Organisms: None Reported Past Surgical History: No Surgical Hx Reported Past Psychological History: No Psychological Hx Reported Smoking Status: Current every day smoker Past Alcohol Use History: Abuse, Daily, Heavy Past Drug Use History: None Reported General Exam - General Exam Comments Initial Comments: GENERAL: Patient is well-developed and well-nourished. Patient is nontoxic and well-h ydrated and is in mild distress. ENT: Neck is soft and supple. No significant lymphadenopathy is noted. Oropharynx is clear. Moist mucous membranes. Neck has full range of motion without eliciting any pain. EYES: The sclera were anicteric and conjunctiva were pink and moist. Extraocular move ments were intact and pupils were equal round and reactive to light. Eyelids were unremarkable. PULMONARY: Unlabored respirations. Good breath sounds bilaterally. No audible rales rhonchi or wheezing was noted. CARDIOVASCULAR: There is a regular rate and rhythm without any murmurs gallops or rubs. ABDOMEN: Soft and nontender with normal bowel sounds. SKIN: Skin is clear with no lesions or rashes and otherwise unremarkable. NEUROLOGIC: Patient is alert and oriented x3. Cranial nerves II through XII are grossly intact. Motor and sensory are also intact. Normal speech, volume and content. Symmetrical smile. MUSCULOSKELETAL: Normal extremities with adequate strength and full range of motion. LYMPHATICS: No significant lymphadenopathy is noted PSYCHIATRIC: Normal psychiatric evaluation. Limitations: no limitations Course Vital Signs 08/29/18 11:26 Temperature 97.5 F L Pulse Rate 86 Respiratory 18 Rate Blood Pressure 122/78 O2 Sat by Pulse 100 Oximetry Medical Decision Making - Medical Decision Making I went back to evaluate the patient he felt considerably better he said his headache was almost gone. Patient did not have any seizure activity in the emergency department. Patient states she will be in rehab tomorrow. Patient had a CAT scan showed no acute abnormality - Lab Data Result diagrams: 08/29/18 12:00 08/29/18 12:00 Lab Results 08/29/18 08/29/18 Range/Units 12:00 12:00 WBC 6.0 (3.8-10.6) k/uL RBC 4.55 (4.30-5.90) m/uL Hgb 13.4 (13.0-17.5) gm/dL Hct 40.8 (39.0-53.0) % MCV 89.8 (80.0-100.0) fL MCH 29.5 (25.0-35.0) pg MCHC 32.9 (31.0-37.0) g/dL RDW 15.3 (11.5-15.5) % Plt Count 213 (150-450) k/uL Neutrophils % 76 % Lymphocytes % 16 % Monocytes % 6 % Eosinophils % 1 % Basophils % 1 % Neutrophils # 4.6 (1.3-7.7) k/uL Lymphocytes # 0.9 L (1.0-4.8) k/uL Monocytes # 0.3 (0-1.0) k/uL Eosinophils # 0.0 (0-0.7) k/uL Basophils # 0.0 (0-0.2) k/uL Sodium 138 (137-145) mmol/L Potassium 4.2 (3.5-5.1) mmol/L Chloride 107 (98-107) mmol/L Carbon Dioxide 26 (22-30) mmol/L Anion Gap 5 mmol/L BUN 10 (9-20) mg/dL Creatinine 0.73 (0.66-1.25) mg/dL Est GFR (CKD-EPI)AfAm >90 (>60 ml/min/1.73 sqM) Est GFR (CKD-EPI)NonAf >90 (>60 ml/min/1.73 sqM) Glucose 100 H (74-99) mg/dL Calcium 9.5 (8.4-10.2) mg/dL Magnesium 1.9 (1.6-2.3) mg/dL Total Bilirubin 0.9 (0.2-1.3) mg/dL AST 38 (17-59) U/L ALT 39 (21-72) U/L Alkaline Phosphatase 75 (38-126) U/L Total Protein 6.7 (6.3-8.2) g/dL Albumin 4.2 (3.5-5.0) g/dL Disposition Clinical Impression: Withdrawal symptoms, alcohol Disposition: HOME SELF-CARE Condition: Good Is patient prescribed a controlled substance at d/c from ED?: No Referrals: Regina Juarez MD [Primary Care Provider] - 1-2 days Time of Disposition: 12:55
[2018-08-29 12:13] LABS: Basophils % (A) 1 %; Eosinophils % (A) 1 %; HCT 40.8 % (39.0-53.0); HGB 13.4 gm/dL (13.0-17.5); Lymphocytes # (A) 0.9 k/uL (1.0-4.8); Lymphocytes % (A) 16 %; MCH 29.5 pg (25.0-35.0); MCHC 32.9 g/dL (31.0-37.0); MCV 89.8 fL (80.0-100.0); Mean Platelet Volume 7.1; Monocytes # (A) 0.3 k/uL (0-1.0); Monocytes % (A) 6 %; Neutrophils # (A) 4.6 k/uL (1.3-7.7); Neutrophils % (A) 76 %; Platelet Count 213 k/uL (150-450); RBC 4.55 m/uL (4.30-5.90); RDW 15.3 % (11.5-15.5)
--- NOTE | 2018-08-29 12:27 | CT ---
EXAMINATION TYPE: CT brain wo con DATE OF EXAM: 08/29/2018 COMPARISON: None HISTORY: Seizure today. CT DLP: 1099.4 mGycm. Automated Exposure Control for Dose Reduction was Utilized. TECHNIQUE: CT scan of the head is performed without contrast. FINDINGS: There is no acute intracranial hemorrhage, mass effect, or midline shift identified. The ventricles and sulci are within normal limits in size. The globes are intact and the visualized sin uses are clear. IMPRESSION: No acute intracranial hemorrhage, mass effect, or midline shift is seen. If symptoms per sist recommend follow-up MRI.
[2018-08-29 12:31] LABS: ALT 39 U/L (21-72); AST 38 U/L (17-59); African American GFR (CKD) >90 (>60 ml/min/1.73 sqM); Albumin 4.2 g/dL (3.5-5.0); Alkaline Phosphatase 75 U/L (38-126); Anion Gap 5 mmol/L; Blood Urea Nitrogen 10 mg/dL (9-20); Calcium 9.5 mg/dL (8.4-10.2); Carbon Dioxide 26 mmol/L (22-30); Chloride 107 mmol/L (98-107); Glucose 100 mg/dL (74-99); Magnesium 1.9 mg/dL (1.6-2.3); Potassium 4.2 mmol/L (3.5-5.1); Sodium 138 mmol/L (137-145); Total Bilirubin 0.9 mg/dL (0.2-1.3); Total Protein 6.7 g/dL (6.3-8.2)
[2018-08-29] MEDS ORDERED: LORazepam 1 MG TAB PO STA (12:55)
[2018-08-29 13:11] VITALS: BP 123/78; PULSE 80
== END 2018-08-29 13:09 | disposition home or self-care (01) ==
LOC: EC 11:17
DX: F10.239 Alcohol dependence with withdrawal, unspecified (principal); F17.200 Nicotine dependence, unspecified, uncomplicated; Z88.0 Allergy status to penicillin
CPT/HCPCS: 36415; 70450; 80053; 83735; 85025; 96360; 99284

== ENCOUNTER 2019-02-17 13:35 | Emergency (ER) | payer OTHER ==
[2019-02-17 13:41] VITALS: BP 121/81; PULSE 101; RESP 19; TEMP 97.7
[2019-02-17] MEDS ORDERED: SODIUM CHLORIDE 0.9% 1,000 ML IV STA (14:02)
[2019-02-17] MEDS ORDERED: MULTIVITAMINS, THERA 1 EACH TAB PO STA (14:02)
[2019-02-17] MEDS ORDERED: FOLIC ACID 1 MG TAB PO STA (14:02)
[2019-02-17] MEDS ORDERED: THIAMINE 100 MG/ML 2 ML VIAL IM STA (14:02)
--- NOTE | 2019-02-17 14:05 | ED ---
Alcohol HPI - General Chief Complaint: Alcohol Stated Complaint: etoh Time Seen by Provider: 02/17/19 13:48 Source: patient Mode of arrival: wheelchair Limitations: no limitations - History of Present Illness Initial Comments: Patient presents with alcohol intoxication. He denies any chest or belly or back pain. He has no homicidal or suicidal ideation. He denies any injuries. - Related Data Previous Rx's Medication Instructions Recorded Gabapentin [Neurontin] 300 mg PO TID #30 cap 02/17/19 Allergies Allergy/AdvReac Type Severity Reaction Status Date / Time amoxicillin Allergy Swelling Verified 08/29/18 11:43 Review of Systems ROS Statement: Those systems with pertinent positive or pertinent negative responses have been documented in the HPI. ROS Other: All systems not noted in ROS Statement are negative. Past Medical History Additional Past Medical History / Comment(s): Alcoholism with seizure in 2018 from withdrawal History of Any Multi-Drug Resistant Organisms: None Reported Past Surgical History: No Surgical Hx Reported Past Psychological History: No Psychological Hx Reported Smoking Status: Current every day smoker Past Alcohol Use History: Abuse, Daily, Heavy Past Drug Use History: None Reported General Exam Limitations: no limitations General appearance: alert, in no apparent distress Head exam: Present: atraumatic, normocephalic, normal inspection Eye exam: Present: normal appearance, PERRL, EOMI. Absent: scleral icterus, conjunctival injection, periorbital swelling ENT exam: Present: normal exam, mucous membranes moist Neck exam: Present: normal inspection. Absent: tenderness, meningismus, lymphadenopathy Respiratory exam: Present: normal lung sounds bilaterally. Absent: respiratory distress, wheezes, rales, rhonchi, stridor Cardiovascular Exam: Present: regular rate, normal rhythm, normal heart sounds. Absent: systolic murmur, diastolic murmur, rubs, gallop, clicks GI/Abdominal exam: Present: soft, normal bowel sounds. Absent: distended, tenderness, guarding, rebound, rigid Extremities exam: Present: normal inspection, full ROM, normal capillary refill. Absent: tenderness, pedal edema, joint swelling, calf tenderness Back exam: Present: normal inspection Neurological exam: Present: alert, oriented X3, CN II-XII intact Psychiatric exam: Present: normal affect, normal mood Skin exam: Present: warm, dry, intact, normal color. Absent: rash Course Vital Signs 02/17/19 13:37 Temperature 97.7 F Pulse Rate 101 H Respiratory 19 Rate Blood Pressure 121/81 O2 Sat by Pulse 100 Oximetry Medical Decision Making - Medical Decision Making Patient presents with alcohol intoxication. He will be kept until clinically sober. - Lab Data Result diagrams: 02/17/19 14:30 Lab Results 02/17/19 Range/Units 14:30 Sodium 145 (137-145) mmol/L Potassium 4.2 (3.5-5.1) mmol/L Chloride 109 H (98-107) mmol/L Carbon Dioxide 28 (22-30) mmol/L Anion Gap 8 mmol/L BUN 11 (9-20) mg/dL Creatinine 0.76 (0.66-1.25) mg/dL Est GFR (CKD-EPI)AfAm >90 (>60 ml/min/1.73 sqM) Est GFR (CKD-EPI)NonAf >90 (>60 ml/min/1.73 sqM) Glucose 101 H (74-99) mg/dL Calcium 9.5 (8.4-10.2) mg/dL Magnesium 2.4 H (1.6-2.3) mg/dL Serum Alcohol 266 H* mg/dL Disposition Clinical Impression: Alcoholic intoxication Disposition: HOME SELF-CARE Condition: Good Instructions (If sedation given, give patient instructions): Alcohol Intoxication (ED) Prescriptions: Gabapentin [Neurontin] 300 mg PO TID #30 cap Is patient prescribed a controlled substance at d/c from ED?: No Referrals: Regina Juarez MD [Primary Care Provider] - 1-2 days
[2019-02-17 14:54] LABS: African American GFR (CKD) >90 (>60 ml/min/1.73 sqM); Anion Gap 8 mmol/L; Blood Urea Nitrogen 11 mg/dL (9-20); Calcium 9.5 mg/dL (8.4-10.2); Carbon Dioxide 28 mmol/L (22-30); Chloride 109 mmol/L (98-107); Glucose 101 mg/dL (74-99); Magnesium 2.4 mg/dL (1.6-2.3); Non-African American GFR(CKD) >90 (>60 ml/min/1.73 sqM); Potassium 4.2 mmol/L (3.5-5.1); Sodium 145 mmol/L (137-145)
[2019-02-17 15:01] LABS: Alcohol 266 mg/dL
== END 2019-02-17 17:35 | disposition home or self-care (01) ==
LOC: EC 13:35
DX: F10.239 Alcohol dependence with withdrawal, unspecified (principal); F10.229 Alcohol dependence with intoxication, unspecified; F17.200 Nicotine dependence, unspecified, uncomplicated; Z88.0 Allergy status to penicillin
CPT/HCPCS: 36415; 80048; 83735; 96372; 96360; 99284; G0480; J3411; 80320

== ENCOUNTER 2019-02-20 12:12 | Emergency (ER) | payer OTHER ==
[2019-02-20] MEDS ORDERED: SODIUM CHLORIDE 0.9% 500 ML 500 ML IV ONE (12:25)
[2019-02-20] MEDS ORDERED: SODIUM CHLORIDE 0.9% 1,000 ML IV ONE (12:25)
[2019-02-20 12:28] VITALS: RESP 16; TEMP 97.8
--- NOTE | 2019-02-20 12:36 | ED ---
General Adult HPI - General Chief complaint: Alcohol Stated complaint: ETOH Time Seen by Provider: 02/20/19 12:12 Source: patient, RN notes reviewed, old records reviewed Mode of arrival: EMS Limitations: no limitations - History of Present Illness Initial comments: This is a 38-year-old male who presents to the emergency department because he went to [facility] after drinking heavily for detox. [facility] sent here because they said he was too drunk to be admitted for detoxification. Patient denies any complaints. Patient states he just wants to be medically cleared to go back to [facility] for detoxification. Patient denied any chest pain difficulty breathing shortness of breath. Patient any recent fever chills or cough. Patient denies any recent trauma. Patient denies any abdominal pain patient denies any nausea vomiting diarrhea. Patient states he does have a history of having a seizure when he stopped drinking in the past but it only happened one time. - Related Data Home Medications Medication Instructions Recorded Confirmed FLUoxetine HCL [PROzac] 10 mg PO DAILY@0600 02/20/19 02/20/19 Gabapentin [Neurontin] 300 mg PO TID@0600,1530,2200 02/20/19 02/20/19 Multivitamins, Thera [Multivitamin 1 tab PO DAILY 02/20/19 02/20/19 (formulary)] Thiamine [Vitamin B-1] 100 mg PO DAILY 02/20/19 02/20/19 Allergies Allergy/AdvReac Type Severity Reaction Status Date / Time amoxicillin Allergy Swelling Verified 02/20/19 12:24 Review of Systems ROS Statement: Those systems with pertinent positive or pertinent negative responses have been documented in the HPI. ROS Other: All systems not noted in ROS Statement are negative. Past Medical History Additional Past Medical History / Comment(s): Alcoholism with seizure in 2018 from withdrawal History of Any Multi-Drug Resistant Organisms: None Reported Past Surgical History: No Surgical Hx Reported Past Psychological History: No Psychological Hx Reported Smoking Status: Current every day smoker Past Alcohol Use History: Abuse, Daily, Heavy Past Drug Use History: None Reported General Exam - General Exam Comments Initial Comments: GENERAL: Patient is well-developed and well-nourished. Patient is nontoxic and well- hydrated and is in no acute distress. Patient appears to be intoxicated. ENT: Neck is soft and supple. No significant lymphadenopathy is noted. Oropharynx is clear. Moist mucous membranes. Neck has full range of motion without eliciting any pain. EYES: The sclera were anicteric and conjunctiva were pink and moist. Extraocular movements were intact and pupils were equal round and reactive to light. Eyelids were unremarkable. PULMONARY: Unlabored respirations. Good breath sounds bilaterally. No audible rales rhonchi or wheezing was noted. CARDIOVASCULAR: There is a regular rate and rhythm without any murmurs gallops or rubs. ABDOMEN: Soft and nontender with normal bowel sounds. SKIN: Skin is clear with no lesions or rashes and otherwise unremarkable. NEUROLOGIC: Patient is alert and oriented x3. Cranial nerves II through XII are grossly intact. Motor and sensory are also intact. Normal speech, volume and content. Symmetrical smile. MUSCULOSKELETAL: Normal extremities with adequate strength and full range of motion. LYMPHATICS: No significant lymphadenopathy is noted PSYCHIATRIC: Normal psychiatric evaluation. Limitations: no limitations Course Vital Signs 02/20/19 12:21 Temperature 97.8 F Pulse Rate 117 H Respiratory 16 Rate Blood Pressure 128/80 O2 Sat by Pulse 97 Oximetry Medical Decision Making - Medical Decision Making Patient is alert and oriented 3 he has received a liter and a half of fluids. Patient also was eating lunch. We spoke with [facility] and stated that he was medically clear and they were willing to accept him back. - Lab Data Result diagrams: 02/20/19 12:33 02/20/19 12:33 Lab Results 02/20/19 12 Range/Units 12:33 12:33 WBC 7.1 (3.8-10.6) k/uL RBC 5.71 (4.30-5.90) m/uL Hgb 17.6 H (13.0-17.5) gm/dL Hct 51.1 (39.0-53.0) % MCV 89.5 (80.0-100.0) fL MCH 30.8 (25.0-35.0) pg MCHC 34.4 (31.0-37.0) g/dL RDW 13.2 (11.5-15.5) % Plt Count 204 (150-450) k/uL Neutrophils % 68 % Lymphocytes % 25 % Monocytes % 4 % Eosinophils % 1 % Basophils % 1 % Neutrophils # 4.8 (1.3-7.7) k/uL Lymphocytes # 1.8 (1.0-4.8) k/uL Monocytes # 0.3 (0-1.0) k/uL Eosinophils # 0.1 (0-0.7) k/uL Basophils # 0.1 (0-0.2) k/uL Sodium 146 H (137-145) mmol/L Potassium 4.0 (3.5-5.1) mmol/L Chloride 110 H (98-107) mmol/L Carbon Dioxide 22 (22-30) mmol/L Anion Gap 14 mmol/L BUN 15 (9-20) mg/dL Creatinine 0.96 (0.66-1.25) mg/dL Est GFR (CKD-EPI)AfAm >90 (>60 ml/min/1.73 sqM) Est GFR (CKD-EPI)NonAf >90 (>60 ml/min/1.73 sqM) Glucose 125 H (74-99) mg/dL Calcium 9.6 (8.4-10.2) mg/dL Magnesium 2.4 H (1.6-2.3) mg/dL Total Bilirubin 0.8 (0.2-1.3) mg/dL AST 37 (17-59) U/L ALT 32 (21-72) U/L Alkaline Phosphatase 86 (38-126) U/L Total Protein 7.9 (6.3-8.2) g/dL Albumin 4.9 (3.5-5.0) g/dL Serum Alcohol 273 H* mg/dL Disposition Clinical Impression: Alcoholic intoxication Disposition: HOME SELF-CARE Instructions (If sedation given, give patient instructions): Alcohol Intoxication (ED) Additional Instructions: Patient is to go to [facility] upon discharge Is patient prescribed a controlled substance at d/c from ED?: No Referrals: Regina Juarez MD [Primary Care Provider] - 1-2 days Time of Disposition: 13:31
[2019-02-20 12:44] LABS: Basophils # (A) 0.1 k/uL (0-0.2); Basophils % (A) 1 %; Eosinophils # (A) 0.1 k/uL (0-0.7); Eosinophils % (A) 1 %; HCT 51.1 % (39.0-53.0); HGB 17.6 gm/dL (13.0-17.5); Lymphocytes # (A) 1.8 k/uL (1.0-4.8); Lymphocytes % (A) 25 %; MCH 30.8 pg (25.0-35.0); MCHC 34.4 g/dL (31.0-37.0); MCV 89.5 fL (80.0-100.0); Monocytes # (A) 0.3 k/uL (0-1.0); Monocytes % (A) 4 %; Neutrophils # (A) 4.8 k/uL (1.3-7.7); Neutrophils % (A) 68 %; Platelet Count 204 k/uL (150-450); RBC 5.71 m/uL (4.30-5.90); RDW 13.2 % (11.5-15.5); WBC 7.1 k/uL (3.8-10.6)
[2019-02-20 12:55] LABS: ALT 32 U/L (21-72); AST 37 U/L (17-59); African American GFR (CKD) >90 (>60 ml/min/1.73 sqM); Albumin 4.9 g/dL (3.5-5.0); Alkaline Phosphatase 86 U/L (38-126); Anion Gap 14 mmol/L; Blood Urea Nitrogen 15 mg/dL (9-20); Calcium 9.6 mg/dL (8.4-10.2); Carbon Dioxide 22 mmol/L (22-30); Chloride 110 mmol/L (98-107); Glucose 125 mg/dL (74-99); Magnesium 2.4 mg/dL (1.6-2.3); Non-African American GFR(CKD) >90 (>60 ml/min/1.73 sqM); Sodium 146 mmol/L (137-145); Total Bilirubin 0.8 mg/dL (0.2-1.3); Total Protein 7.9 g/dL (6.3-8.2)
[2019-02-20 13:07] LABS: Alcohol 273 mg/dL
[2019-02-20 14:22] VITALS: BP 99/52; PULSE 91
== END 2019-02-20 14:35 | disposition home or self-care (01) ==
LOC: EC 12:12
DX: F10.129 Alcohol abuse with intoxication, unspecified (principal); R56.9 Unspecified convulsions; F17.200 Nicotine dependence, unspecified, uncomplicated; Z79.899 Other long term (current) drug therapy; Z88.0 Allergy status to penicillin
CPT/HCPCS: 36415; 80053; 83735; 85025; 99284; 96360; G0480; 80320

== ENCOUNTER 2021-02-17 19:32 | Inpatient (IN) | payer OTHER ==
[2021-02-17 20:14] LABS: Basophils % (A) 0 %; Eosinophils % (A) 1 %; HCT 43.5 % (39.0-53.0); HGB 14.9 gm/dL (13.0-17.5); Lymphocytes # (A) 1.4 k/uL (1.0-4.8); Lymphocytes % (A) 29 %; MCH 32.1 pg (25.0-35.0); MCHC 34.2 g/dL (31.0-37.0); MCV 93.9 fL (80.0-100.0); Mean Platelet Volume 7.5; Monocytes # (A) 0.3 k/uL (0-1.0); Monocytes % (A) 6 %; Neutrophils # (A) 3.1 k/uL (1.3-7.7); Neutrophils % (A) 62 %; Platelet Count 164 k/uL (150-450); RBC 4.63 m/uL (4.30-5.90); RDW 14.3 % (11.5-15.5); WBC 4.9 k/uL (3.8-10.6)
[2021-02-17 20:23] LABS: Partial Thromboplastin Time 24.6 sec (22.0-30.0); Prothrombin Time 10.6 sec (9.0-12.0)
[2021-02-17 20:24] LABS: ALT 44 U/L (4-49); African American GFR (CKD) >90 (>60 ml/min/1.73 sqM); Albumin 4.9 g/dL (3.5-5.0); Anion Gap 13 mmol/L; Calcium 9.8 mg/dL (8.4-10.2); Carbon Dioxide 24 mmol/L (22-30); Chloride 101 mmol/L (98-107); Magnesium 1.9 mg/dL (1.6-2.3); Non-African American GFR(CKD) >90 (>60 ml/min/1.73 sqM); Potassium 3.8 mmol/L (3.5-5.1); Sodium 138 mmol/L (137-145); Total Bilirubin 0.8 mg/dL (0.2-1.3); Total Protein 7.8 g/dL (6.3-8.2)
[2021-02-17] MEDS ORDERED: LORazepam 2 MG/ML INJ IV PRN ×3 (20:24)
[2021-02-17] MEDS ORDERED: THIAMINE 100 MG/ML 2 ML VIAL IM STA (20:24)
[2021-02-17 20:26] LABS: AST 63 U/L (17-59); Alkaline Phosphatase 88 U/L (38-126); Blood Urea Nitrogen 7 mg/dL (9-20); Glucose 102 mg/dL (74-99)
[2021-02-17] MEDS ORDERED: ASPIRIN 81 MG PO STA (20:51)
[2021-02-17] MEDS ORDERED: SODIUM CHLORIDE 0.9% 1,000 ML IV STA ×2 (20:51→21:48)
[2021-02-17] MEDS ORDERED: KETOROLAC 15 MG/ML 1 ML VIAL IVP STA (20:51)
--- NOTE | 2021-02-17 21:00 | ED ---
General Adult HPI - General Chief complaint: Chest Pain Stated complaint: ETOH withdrawal Time Seen by Provider: 02/17/21 20:19 Source: patient, RN notes reviewed, old records reviewed Mode of arrival: ambulatory Limitations: no limitations - History of Present Illness Initial comments: Patient is a 40-year-old male with past medical history remarkable for chronic alcohol abuse and relapsed on Thanksgiving presents emergency Department complaining of alcohol chills and left-sided chest pain. Patient states he does have a history of seizure from withdrawals. States he has been drinking about a pint of liquor a day., Beginning this morning, he began having chest pain over the left side. Did not radiate. Describes it as a pressure with intermittent sharp sensation. Denies any Difficulty in breathing, nausea, vomiting. Denies any abdominal pain. Denies any headache. States he does have tremors. States he believes he is going through alcohol withdrawals. Denies any fevers, chills, cough. His no other acute complaints at this time. Denies any known palliative or provocative factors for the chest pain. - Related Data Home Medications Medication Instructions Recorded Confirmed Acetaminophen Tab [Tylenol Tab] 1,000 mg PO Q6HR PRN 02/17/21 02/17/21 Ibuprofen [Motrin] 800 mg PO BID PRN 02/17/21 02/17/21 Allergies Allergy/AdvReac Type Severity Reaction Status Date / Time amoxicillin Allergy Swelling Verified 02/17/21 20:57 Review of Systems ROS Statement: Those systems with pertinent positive or pertinent negative responses have been documented in the HPI. Review of Systems: CONST: Denies fever EYES: Denies blurry vision ENT: Denies nasal congestion C/V: Endorses chest pain RESP: Denies shortness of breath GI: Denies abdominal pain : Denies dysuria SKIN: Denies rash. MSK: Denies joint pain. NEURO: Denies headache ROS Other: All systems not noted in ROS Statement are negative. Past Medical History Additional Past Medical History / Comment(s): Alcoholism with seizure in 2018 from withdrawal History of Any Multi-Drug Resistant Organisms: None Reported Past Surgical History: No Surgical Hx Reported Past Psychological History: No Psychological Hx Reported Smoking Status: Current every day smoker Past Alcohol Use History: Abuse, Daily, Heavy Past Drug Use History: None Reported General Exam - General Exam Comments Initial Comments: General: Appears in no acute distress. Patient does have generalized tremors in bilateral upper extremities and tongue fasciculations. Appears to be in alcohol withdrawal. HEAD: Normal with no signs of head trauma. EYES: PERRLA, EOMI, conjunctiva normal, no discharge. ENT: Hearing grossly intact, normal oropharynx. Tongue tremors and fascicula tions. RESPIRATORY: Clear breath sounds bilaterally. No wheezes, rales, or rhonchi. C/V: Regular rate and rhythm. S1 and S2 auscultated, no edema, peripheral pulses 2+ and intact throughout ABD: Abd is soft, nontender, nondistended EXT: Normal range of motion, no obvious deformity SKIN: No rashes or lesions observed on exposed skin. NEURO: Alert and oriented 4. Cranial nerves II through XII are intact. Peripheral tremors in the fingertips. Limitations: no limitations Course Vital Signs 02/17/21 02/17/21 02/17/21 19:49 20:54 21:00 Temperature 97.9 F Pulse Rate 105 H 87 Respiratory 20 16 Rate Blood Pressure 129/88 125/92 135/84 O2 Sat by Pulse 99 Oximetry 02/17/21 23:14 Temperature Pulse Rate 89 Respiratory 16 Rate Blood Pressure O2 Sat by Pulse Oximetry Medical Decision Making - Medical Decision Making This on the patient's presentation and physical exam, he is likely expressing a call withdrawals but is also having chest pain. Therefore we will obtain a cardiac workup in addition to starting the patient on CIWA protocol with Ativan. He was in agreement this plan. Patient will be administered aspirin, as well as Toradol for his chest pain. Also be given a 1 L fluid bolus and started on m aintenance fluids. Thiamine also be administered. Patient's EKG shows no signs of acute ischemia. Patient's chest x-ray revealed no acute cardiopulmonary process. Laboratory studies were remarkable for negative troponin. Lactate is mildly elevated at 2.2 which is likely secondary to dehydration. Remainder of the laboratory studies are within normal limits and unremarkable. On reevaluation, patient's tremors are improved. States his chest pain is always resolved. His no other acute complaints at this time. I did discuss with him that I would like to admit him to the hospital for his chest pain as well as his alcohol withdrawals. We can cardiology evaluate him in the morning. Patient was in agreement this plan. I spoke with the admitting team under Dr. Whitney who was in agreement with this plan. Patient was therefore admitted in serious condition to telemetry bed. - Lab Data Result diagrams: 02/17/21 20:08 02/17/21 20:08 Lab Results 02/17/21 02/17/21 02/17/21 Range/Units 20:08 20:08 20:08 WBC 4.9 (3.8-10.6) k/uL RBC 4.63 (4.30-5.90) m/uL Hgb 14.9 (13.0-17.5) gm/dL Hct 43.5 (39.0-53.0) % MCV 93.9 (80.0-100.0) fL MCH 32.1 (25.0-35.0) pg MCHC 34.2 (31.0-37.0) g/dL RDW 14.3 (11.5-15.5) % Plt Count 164 (150-450) k/uL MPV 7.5 Neutrophils % 62 % Lymphocytes % 29 % Monocytes % 6 % Eosinophils % 1 % Basophils % 0 % Neutrophils # 3.1 (1.3-7.7) k/uL Lymphocytes # 1.4 (1.0-4.8) k/uL Monocytes # 0.3 (0-1.0) k/uL Eosinophils # 0.0 (0-0.7) k/uL Basophils # 0.0 (0-0.2) k/uL PT 10.6 (9.0-12.0) sec INR 1.0 (<1.2) APTT 24.6 (22.0-30.0) sec Sodium 138 (137-145) mmol/L Potassium 3.8 (3.5-5.1) mmol/L Chloride 101 (98-107) mmol/L Carbon Dioxide 24 (22-30) mmol/L Anion Gap 13 mmol/L BUN 7 L (9-20) mg/dL Creatinine 0.61 L (0.66-1.25) mg/dL Est GFR (CKD-EPI)AfAm >90 (>60 ml/min/1.73 sqM) Est GFR (CKD-EPI)NonAf >90 (>60 ml/min/1.73 sqM) Glucose 102 H (74-99) mg/dL Lactic Ac Sepsis Rflx Plasma Lactic Acid [place] (0.7-2.0) mmol/L Calcium 9.8 (8.4-10.2) mg/dL Magnesium 1.9 (1.6-2.3) mg/dL Total Bilirubin 0.8 (0.2-1.3) mg/dL AST 63 H (17-59) U/L ALT 44 (4-49) U/L Alkaline Phosphatase 88 (38-126) U/L Troponin I (0.000-0.034) ng/mL Total Protein 7.8 (6.3-8.2) g/dL Albumin 4.9 (3.5-5.0) g/dL Amylase (30-110) U/L Lipase (23-300) U/L 02/17/21 02/17/21 02/17/21 Range/Units 20:08 20:08 20:21 WBC (3.8-10.6) k/uL RBC (4.30-5.90) m/uL Hgb (13.0-17.5) gm/dL Hct (39.0-53.0) % MCV (80.0-100.0) fL MCH (25.0-35.0) pg MCHC (31.0-37.0) g/dL RDW (11.5-15.5) % Plt Count (150-450) k/uL MPV Neutrophils % % Lymphocytes % % Monocytes % % Eosinophils % % Basophils % % Neutrophils # (1.3-7.7) k/uL Lymphocytes # (1.0-4.8) k/uL Monocytes # (0-1.0) k/uL Eosinophils # (0-0.7) k/uL Basophils # (0-0.2) k/uL PT (9.0-12.0) sec INR (<1.2) APTT (22.0-30.0) sec Sodium (137-145) mmol/L Potassium (3.5-5.1) mmol/L Chloride (98-107) mmol/L Carbon Dioxide (22-30) mmol/L Anion Gap mmol/L BUN (9-20) mg/dL Creatinine (0.66-1.25) mg/dL Est GFR (CKD-EPI)AfAm (>60 ml/min/1.73 sqM) Est GFR (CKD-EPI)NonAf (>60 ml/min/1.73 sqM) Glucose (74-99) mg/dL Lactic Ac Sepsis Rflx Plasma Lactic Acid [place] 2.2 H* (0.7-2.0) mmol/L Calcium (8.4-10.2) mg/dL Magnesium (1.6-2.3) mg/dL Total Bilirubin (0.2-1.3) mg/dL AST (17-59) U/L ALT (4-49) U/L Alkaline Phosphatase (38-126) U/L Troponin I <0.012 (0.000-0.034) ng/mL Total Protein (6.3-8.2) g/dL Albumin (3.5-5.0) g/dL Amylase 76 (30-110) U/L Lipase 150 (23-300) U/L 02/17/21 Range/Units 21:18 WBC (3.8-10.6) k/uL RBC (4.30-5.90) m/uL Hgb (13.0-17.5) gm/dL Hct (39.0-53.0) % MCV (80.0-100.0) fL MCH (25.0-35.0) pg MCHC (31.0-37.0) g/dL RDW (11.5-15.5) % Plt Count (150-450) k/uL MPV Neutrophils % % Lymphocytes % % Monocytes % % Eosinophils % % Basophils % % Neutrophils # (1.3-7.7) k/uL Lymphocytes # (1.0-4.8) k/uL Monocytes # (0-1.0) k/uL Eosinophils # (0-0.7) k/uL Basophils # (0-0.2) k/uL PT (9.0-12.0) sec INR (<1.2) APTT (22.0-30.0) sec Sodium (137-145) mmol/L Potassium (3.5-5.1) mmol/L Chloride (98-107) mmol/L Carbon Dioxide (22-30) mmol/L Anion Gap mmol/L BUN (9-20) mg/dL Creatinine (0.66-1.25) mg/dL Est GFR (CKD-EPI)AfAm (>60 ml/min/1.73 sqM) Est GFR (CKD-EPI)NonAf (>60 ml/min/1.73 sqM) Glucose (74-99) mg/dL Lactic Ac Sepsis Rflx Y Plasma Lactic Acid [place] (0.7-2.0) mmol/L Calcium (8.4-10.2) mg/dL Magnesium (1.6-2.3) mg/dL Total Bilirubin (0.2-1.3) mg/dL AST (17-59) U/L ALT (4-49) U/L Alkaline Phosphatase (38-126) U/L Troponin I (0.000-0.034) ng/mL Total Protein (6.3-8.2) g/dL Albumin (3.5-5.0) g/dL Amylase (30-110) U/L Lipase (23-300) U/L - EKG Data -: EKG Interpreted by Me EKG Comments: 12-lead Electrocardiogram Interpretation Note EKG was reviewed and interpreted by myself. 12-lead ECG performed at 1959 is interpreted by me as revealing normal sinus rhythm at a rate of 96 beats per minute. [place] is normal. ID interval is 140 ms, QRS duration is 84 ms, QTc is 429 ms.. There were no ST or T wave abnormalities to suggest myocardial ischemia or injury. R wave progression across the precordium was satisfactory. By my interpretation this EKG is non-diagnostic for acute ischemia. Disposition Clinical Impression: Chest pain of unknown etiology, Alcohol withdrawal, Dehydration Disposition: ADMITTED IP TO THIS HOSP Condition: Serious
[2021-02-17] MEDS ORDERED: KETOROLAC 30 MG/ML 1 ML VIAL IVP STA (21:01)
[2021-02-17 21:08] LABS: Amylase 76 U/L (30-110); Lipase 150 U/L (23-300)
[2021-02-17] MEDS ORDERED: IBUPROFEN 400 MG TAB PO PRN (21:48)
[2021-02-17] MEDS ORDERED: NALOXONE 0.4 MG/ML 1 ML VIAL IV PRN (21:48)
--- NOTE | 2021-02-17 22:15 | XR ---
INDICATION: Patient age:Male; 40 years old; Reason for study: Chest Pain; [facility]. COMPARISON: Chest radiographs from 07/27/2020. TECHNIQUE: Frontal and lateral views of the chest. FINDINGS: Lungs/Pleura: There is no evidence of pleural effusion, focal consolidation, or pneumothorax. Pulmonary vascularity: Unremarkable. Heart/mediastinum: Cardiomediastinal silhouette is unremarkable. Musculoskeletal: No acute osseous pathology. IMPRESSION: No acute cardiopulmonary disease/process.
[2021-02-18 06:19] LABS: Basophils % (A) 0 %; Eosinophils # (A) 0.1 k/uL (0-0.7); Eosinophils % (A) 1 %; HCT 38.6 % (39.0-53.0); Lymphocytes # (A) 1.4 k/uL (1.0-4.8); Lymphocytes % (A) 30 %; MCH 32.4 pg (25.0-35.0); MCHC 33.8 g/dL (31.0-37.0); Mean Platelet Volume 8.2; Monocytes # (A) 0.3 k/uL (0-1.0); Monocytes % (A) 7 %; Neutrophils # (A) 2.7 k/uL (1.3-7.7); Neutrophils % (A) 59 %; Platelet Count 121 k/uL (150-450); RBC 4.02 m/uL (4.30-5.90); RDW 14.2 % (11.5-15.5); WBC 4.6 k/uL (3.8-10.6)
[2021-02-18 06:37] LABS: ALT 34 U/L (4-49); AST 49 U/L (17-59); African American GFR (CKD) >90 (>60 ml/min/1.73 sqM); Albumin 3.6 g/dL (3.5-5.0); Alkaline Phosphatase 70 U/L (38-126); Anion Gap 6 mmol/L; Blood Urea Nitrogen 10 mg/dL (9-20); Calcium 9.2 mg/dL (8.4-10.2); Carbon Dioxide 25 mmol/L (22-30); Chloride 106 mmol/L (98-107); Glucose 84 mg/dL (74-99); Magnesium 1.8 mg/dL (1.6-2.3); Non-African American GFR(CKD) >90 (>60 ml/min/1.73 sqM); Phosphorus 4.1 mg/dL (2.5-4.5); Potassium 3.9 mmol/L (3.5-5.1); Sodium 137 mmol/L (137-145); Total Bilirubin 1.4 mg/dL (0.2-1.3)
[2021-02-18] MEDS ORDERED: THIAMINE 100 MG TAB PO SCH (07:30)
[2021-02-18] MEDS ORDERED: ACETAMINOPHEN TAB 325 MG TAB PO PRN (07:45)
[2021-02-18] MEDS ORDERED: FAMOTIDINE 20 MG/2 ML VIAL IV SCH (09:00)
[2021-02-18] MEDS ORDERED: HEPARIN SODIUM,PORCINE/PF 5,000 UNIT/0.5 ML SYRINGE SQ SCH ×2 (09:00)
--- NOTE | 2021-02-18 10:06 | P.CRDCN ---
History of Present Illness History of present illness: HISTORY OF PRESENTING ILLNESS This is a pleasant 40-year-old male past medical history significant for alcohol abuse, seizures, chronic nicotine dependence. He does not follow with a cardiolo gist. We have been asked to see in consultation for chest pain. Patient presents emergency department on 02/17/2021 with complaints of chills, alcohol withdrawal, left-sided chest pain. He states that yesterday morning he began to have left- sided chest pain. He describes it as a pressure, and intermittently sharp. It is nonradiating, nonexertional. He states that currently it comes and goes. He denies any associated shortness of breath, nausea, vomiting, diaphoresis, lightheadedness, dizziness, syncope or near syncope. He denies any history of VA, coronary disease, stroke, diabetes, hypertension, hyperlipidemia. She denies any family history of coronary artery disease. He states he was sober for about 6 months prior to , but relapsed. Drinks about a pint of liquor a day. DIAGNOSTICS EKG reveals sinus rhythm, heart rate 96, poor R wave progression, early repolarization in anterior leads, LVH.prior EKG in 2018 with similar findings. EKG this morning with similar findings and no changes. Telemetry tracings indicate sinus mechanism, heart rate 5560s Chest xray no acute cardio pulmonary process. Laboratory reviewed, WBC 4.6, hemoglobin 13, platelets 1181, sodium 137, potassium 3.9, BUN 10, serum creatinine 0.7, troponin negative 3, magnesium 1.8, total bilirubin 1.4, covid 19 PCR negative Current home medications include PRN Ibuprofen and PRN Tylenol REVIEW OF SYSTEMS At the time of my exam: CONSTITUTIONAL: Denies fever or chills. CARDIOVASCULAR: + chest pain, Denies shortness of breath, orthopnea, PND or palpitations. RESPIRATORY: Denies cough. GASTROINTESTINAL: Denies abdominal pain, diarrhea, constipation, nausea or vomiting. MUSCULOSKELETAL: Denies myalgias. NEUROLOGIC: Denies numbness, tingling, headache or weakness. ENDOCRINE: Denies fatigue, weight change, polydipsia or polyurina. GENITOURINARY: Denies burning, hematuria or urgency with micturation. HEMATOLOGIC: Denies history of anemia or bleeding. PHYSICAL EXAMINATION Blood pressure 148/86, heart rate 78, afebrile, oxygen saturations greater than 92% on room air CONSTITUTIONAL: No apparent distress. HEENT: Head is normocephalic. Pupils are equal, round. Sclerae anicteric. Mucous membranes of the mouth are moist. No JVD. No carotid bruit. CHEST EXAMINATION: Lungs are clear to auscultation. No chest wall tenderness is noted on palpation or with deep breathing. HEART EXAMINATION: Regular rate and rhythm. S1, S2 heard. No murmurs, gallops or rub. ABDOMEN: Soft, nontender. Positive bowel sounds. EXTREMITIES: 2+ peripheral pulses, no lower extremity edema and no calf tendern ess. SKIN: warm, dry NEUROLOGIC EXAMINATION: Patient is awake, alert and oriented x3. ASSESSMENT Chest pain, noncardiac, acute coronary syndrome has ruled out Alcohol abuse Chronic nicotine dependence History of seizures PLAN An acute coronary event has been ruled out with no EKG evidence of ischemia and negative cardiac enzymes. Obtain 2D echocardiogram completed at bedside. Echocardiogram reviewed by Dr. De Anda at bedside, patient with normal LV systolic function, no significant wall motion abnormalities Smoking and alcohol cessation discussed and highly recommended. We will sign off at this time. Please reach out Thank you kindly for this consultation. Nurse Practitioner note has been reviewed, I agree with a documented findings and plan of care. Patient was seen and examined. Past Medical History Additional Past Medical History / Comment(s): Alcoholism with seizure in 2018 from withdrawal History of Any Multi-Drug Resistant Organisms: None Reported Past Surgical History: No Surgical Hx Reported Past Psychological History: Anxiety Smoking Status: Current every day smoker Past Alcohol Use History: Abuse, Daily, Heavy Additional Past Alcohol Use History / Comment(s): currently drinking a 5th of vodka daily since . Was sober for 6months prior to . Past Drug Use History: None Reported - Past Family History Mother Family Medical History: No Reported History Additional Family Medical History / Comment(s): drug addict Father Additional Family Medical History / Comment(s): etoh Medications and Allergies Home Medications Medication Instructions Recorded Confirmed Type Acetaminophen Tab [Tylenol Tab] 1,000 mg PO Q6HR PRN 02/17/21 02/17/21 History Ibuprofen [Motrin] 800 mg PO BID PRN 02/17/21 02/17/21 History Allergies Allergy/AdvReac Type Severity Reaction Status Date / Time amoxicillin Allergy Swelling Verified 02/17/21 20:57 Physical Exam Vitals: Vital Signs Temp Pulse Pulse Resp BP BP Pulse Ox 02/18/21 02:05 66 16 122/72 98 02/18/21 02:00 98.4 F 63 16 114/70 97 02/17/21 23:14 89 16 02/17/21 21:00 135/84 02/17/21 20:54 87 16 125/92 02/17/21 19:49 97.9 F 105 H 20 129/88 99 Intake and Output 02/17/21 02/18/21 02/18/21 22:59 06:59 14:59 Output Total 1 Balance -1 Output: Urine 1 Other: Weight 63.503 kg 63.503 kg Results 02/18/21 05:41 02/18/21 05:41 Cardiac Enzymes 02/17/21 02/17/21 02/18/21 Range/Units 20:08 20:08 00:18 AST 63 H (17-59) U/L Troponin I <0.012 <0.012 (0.000-0.034) ng/mL 02/18/21 02/18/21 Range/Units 05:41 05:50 AST 49 (17-59) U/L Troponin I <0.012 (0.000-0.034) ng/mL Coagulation 02/17/21 Range/Units 20:08 PT 10.6 (9.0-12.0) sec APTT 24.6 (22.0-30.0) sec CBC 02/17/21 02/18/21 Range/Units 20:08 05:41 WBC 4.9 4.6 (3.8-10.6) k/uL RBC 4.63 4.02 L (4.30-5.90) m/uL Hgb 14.9 13.0 (13.0-17.5) gm/dL Hct 43.5 38.6 L (39.0-53.0) % Plt Count 164 121 L (150-450) k/uL Comprehensive Metabolic Panel 02/17/21 02/18/21 Range/Units 20:08 05:41 Sodium 138 137 (137-145) mmol/L Potassium 3.8 3.9 (3.5-5.1) mmol/L Chloride 101 106 (98-107) mmol/L Carbon Dioxide 24 25 (22-30) mmol/L BUN 7 L 10 (9-20) mg/dL Creatinine 0.61 L 0.78 (0.66-1.25) mg/dL Glucose 102 H 84 (74-99) mg/dL Calcium 9.8 9.2 (8.4-10.2) mg/dL AST 63 H 49 (17-59) U/L ALT 44 34 (4-49) U/L Alkaline Phosphatase 88 70 (38-126) U/L Total Protein 7.8 6.0 L (6.3-8.2) g/dL Albumin 4.9 3.6 (3.5-5.0) g/dL Current Medications Generic Name Dose Route Start Last Admin Trade Name Freq PRN Reason Stop Dose Admin Heparin Sodium (Porcine) 5,000 unit 02/18/21 00:00 02/18/21 03:20 Heparin Sodium,Porcine/Pf 5,000 Unit/0.5 Ml Syringe SQ Not Given Q8HR BRIDGETTE Ibuprofen 400 mg 02/17/21 21:48 Ibuprofen 400 Mg Tab PO Q6HR PRN Mild Pain or Fever > 100.5 Lorazepam 1 mg 02/17/21 20:24 Lorazepam 2 Mg/Ml Inj IV Q2HR PRN CIWA 8 or 9 Lorazepam 1 mg 02/17/21 20:24 02/17/21 21:29 Lorazepam 2 Mg/Ml Inj IV 1 mg Q1HR PRN Administration CIWA 10 to 15 Lorazepam 2 mg 02/17/21 20:24 Lorazepam 2 Mg/Ml Inj IV 02/19/21 20:24 Q10M PRN CIWA 16 or higher Naloxone HCl 0.2 mg 02/17/21 21:48 Naloxone 0.4 Mg/Ml 1 Ml Vial IV Q2M PRN Opioid Reversal Thiamine HCl 100 mg 02/18/21 07:30 Thiamine 100 Mg Tab PO BID-W/MEALS BRIDGETTE Intake and Output 02/17/21 02/18/21 02/18/21 22:59 06:59 14:59 Output Total 1 Balance -1 Output: Urine 1 Other: Weight 63.503 kg 63.503 kg 02/18/21 05:41 02/18/21 05:41
[2021-02-18] MEDS ORDERED: diazePAM 5 MG TAB PO STA (12:49)
--- NOTE | 2021-02-18 12:50 | P.HPIM ---
History of Present Illness This is a pleasant 40 years old male with past medical history of alcohol abuse, depression and suicidal thoughts. His PCP is Dr. gomes but he hasn't seen her for about a year now Presents with alcohol problems and risk of withdrawal and also has been complaining of from chest pain. Patient states that he has history of alcohol abuse however states that since his alcohol consumption increased to 1 pint per day or more and his been trying to quit so he came to the hospital but yesterday also he started having chest pain which is central. Lack sharp and pressure, nonradiating about 8/10 in severity with no dyspnea or coughing but now his chest pain is resolved and he rate it this morning's 0/10 He denies abdominal pain or nausea vomiting or diarrhea. No urinary complaints. He has some tremors and shakiness from his withdrawal. He smokes about 2-5 cigarettes per day and he was counseled to quit and he agrees with nicotine patch. No illicit drugs Patient says that he is planning to go to [place] for detox on Sunday Vitas looks stable. unremarkable including CBC, BMP, liver enzymes. Troponin 2 are negative less than 0.012. Coronavirus not detected. Chest x-ray: No acute process. EKG showing normal sinus rhythm at [address]-T changes. QTC 429. In the emergency room was started on CIWA protocol, aspirin 324 mg, thiamine and normal saline. His CIWA score earlier this morning was 2 Review of Systems CONSTITUTIONAL: No fever, no malaise, no fatigue. HEENT: No recent visual problems or hearing problems. Denied any sore throat. CARDIOVASCULAR: No orthopnea, PND, no palpitations, no syncope. PULMONARY: No shortness of breath, no cough, no hemoptysis. GASTROINTESTINAL: No diarrhea, no nausea, no vomiting, no abdominal pain. Normo active bowel sounds. NEUROLOGICAL: No headaches, no weakness, no numbness. HEMATOLOGICAL: Denies any bleeding or petechiae. GENITOURINARY: Denies any burning micturition, frequency, or urgency. MUSCULOSKELETAL/RHEUMATOLOGICAL: Denies any joint pain, swelling, or any muscle pain. ENDOCRINE: Denies any polyuria or polydipsia. Past Medical History Additional Past Medical History / Comment(s): Alcoholism with seizure in 2018 from withdrawal History of Any Multi-Drug Resistant Organisms: None Reported Past Surgical History: No Surgical Hx Reported Past Psychological History: Anxiety Smoking Status: Current every day smoker Past Alcohol Use History: Abuse, Daily, Heavy Additional Past Alcohol Use History / Comment(s): currently drinking a 5th of vodka daily since . Was sober for 6months prior to . Past Drug Use History: None Reported - Past Family History Mother Family Medical History: No Reported History Additional Family Medical History / Comment(s): drug addict Father Additional Family Medical History / Comment(s): etoh Medications and Allergies Home Medications Medication Instructions Recorded Confirmed Type Acetaminophen Tab [Tylenol Tab] 1,000 mg PO Q6HR PRN 02/17/21 02/17/21 History Ibuprofen [Motrin] 800 mg PO BID PRN 02/17/21 02/17/21 History Allergies Allergy/AdvReac Type Severity Reaction Status Date / Time amoxicillin Allergy Swelling Verified 02/17/21 20:57 Physical Exam Vitals: Vital Signs Temp Pulse Pulse Resp BP BP Pulse Ox 02/18/21 02:05 66 16 122/72 98 02/18/21 02:00 98.4 F 63 16 114/70 97 02/17/21 23:14 89 16 02/17/21 21:00 135/84 02/17/21 20:54 87 16 125/92 02/17/21 19:49 97.9 F 105 H 20 129/88 99 Intake and Output 02/17/21 02/18/21 02/18/21 22:59 06:59 14:59 Output Total 1 Balance -1 Output: Urine 1 Other: Weight 63.503 kg 63.503 kg GENERAL: The patient is alert and oriented x3, not in any acute distress. Well developed, well nourished. HEENT: Pupils are round and equally reacting to light. EOMI. No scleral icterus. No conjunctival pallor. Normocephalic, atraumatic. No pharyngeal erythema. No thyromegaly. CARDIOVASCULAR: S1 and S2 present. No murmurs, rubs, or gallops. PULMONARY: Chest is clear to auscultation, no wheezing or crackles. ABDOMEN: Soft, nontender, nondistended, normoactive bowel sounds. No palpable organomegaly. MUSCULOSKELETAL: No joint swelling or deformity. EXTREMITIES: No cyanosis, clubbing, or pedal edema. NEUROLOGICAL: Gross neurological examination did not reveal any focal deficits. SKIN: No rashes. No petechiae Results CBC & Chem 7: 02/18/21 05:41 02/18/21 05:41 Labs: Abnormal Lab Results - Last 24 Hours (Table) 02/17/21 02/17/21 02/18/21 Range/Units 20:08 20:21 05:41 RBC 4.02 L (4.30-5.90) m/uL Hct 38.6 L (39.0-53.0) % Plt Count 121 L (150-450) k/uL BUN 7 L (9-20) mg/dL Creatinine 0.61 L (0.66-1.25) mg/dL Glucose 102 H (74-99) mg/dL Plasma Lactic Acid [place] 2.2 H* (0.7-2.0) mmol/L Total Bilirubin (0.2-1.3) mg/dL AST 63 H (17-59) U/L Total Protein (6.3-8.2) g/dL 02/18/21 Range/Units 05:41 RBC (4.30-5.90) m/uL Hct (39.0-53.0) % Plt Count (150-450) k/uL BUN (9-20) mg/dL Creatinine (0.66-1.25) mg/dL Glucose (74-99) mg/dL Plasma Lactic Acid [place] (0.7-2.0) mmol/L Total Bilirubin 1.4 H (0.2-1.3) mg/dL AST (17-59) U/L Total Protein 6.0 L (6.3-8.2) g/dL Thrombosis Risk Factor Assmnt - Choose All That Apply Any of the Below Risk Factors Present?: No Other Risk Factors: No Other congenital or acquired thrombophilia - If yes, enter type in comment: No Thrombosis Risk Factor Assessment Level: Very Low Risk Assessment and Plan Assessment: Chest pain, rule out cardiac causes. Currently resolved Alcohol abuse. at risk of alcohol withdrawal History of depression and suicidal thoughts Plan: This is a pleasant 40 years old male who presents with chest pain and alcohol problem Continue with serial troponin, cardiology consult and echocardiogram Continue with CIWA protocol and thiamine psych consult to rule out depression. Patient history of depression and suicidal ideation although he denies any suicidal ideation now Volume 5 mg 1 Labs and medication were reviewed.. Continue same treatment. Continue with symptomatic treatment. Resume home medication. Monitor lytes and vitals. DVT and GI prophylaxis. Further recommendations depends on the clinical course of the patient DVT prophylaxis: Subcutaneous heparin GI Prophylaxis: Pepcid PT/OT: Pending Prognosis is guarded
--- NOTE | 2021-02-18 13:00 | ECHOF ---
Referral Reason:chest pain MEASUREMENTS -------- HEIGHT: 188.0 cm WEIGHT: 63.5 kg BP: 114/70 IVSd: 1.0 cm (0.6 - 1.1) LVIDd: 3.5 cm (3.9 - 5.3) LVPWd: 1.2 cm (0.6 - 1.1) EDV(Teich): 51 ml IVSs: 1.3 cm LVIDs: 2.5 cm LVPWs: 1.5 cm %IVS Thck: 24 % ESV(Teich): 22 ml EF(Teich): 58 % %FS: 30 % SV(Teich): 30 ml RVIDd: 3.2 cm (< 3.3) IVC: 20.53 mm LALs A4C: 5.0 cm LAAs A4C: 13.0 cm LAESV A-L A4C: 29 ml LAESV MOD A4C: 26 ml LALs A2C: 4.5 cm LAAs A2C: 11.4 cm LAESV A-L A2C: 25 ml LAESV MOD A2C: 23 ml LAESV(A-L): 28 ml LAESV Index (A-L): 15.15 ml/m Ao Diam: 2.9 cm (2.0 - 3.7) LA Diam: 3.2 cm (2.7 - 3.8) AV Cusp: 2.1 cm (1.5 - 2.6) EPSS: 0.4 cm MV E Haresh: 1.13 m/s MV DecT: 164 ms MV Dec Winkler: 6.9 m/s MV A Haresh: 0.31 m/s MV E/A Ratio: 3.61 MV PHT: 48 ms MV EF SLOPE: 179.90 mm/s (70 - 150) MV EXCURSION: 20.94 mm (> 18.000) FINDINGS -------- Sinus rhythm. This was a technically adequate study. The left ventricular size is normal. Left ventricular wall thickness is normal. Overall left vent ricular systolic function is normal with, an EF between 55 - 60 %. The diastolic filling pattern is normal for the age of the patient 6.94. The right ventricle is normal in size. Normal LA size by volume 22+/-6 ml/m2. The right atrial size is normal. Interatrial and interventricular septum intact. There is no evidence of aortic regurgitation. There is no evidence of aortic stenosis. There is trace to mild mitral regurgitation. Trace tricuspid regurgitation present. Unable to estimate RVSP due to inadequate TR jet spectral do ppler profile. There is no pulmonic regurgitation present. The aortic root size is normal. The inferior vena cava is mildly dilated. There is no pericardial effusion. CONCLUSIONS -------- 1. The left ventricular size is normal. 2. Left ventricular wall thickness is normal. 3. Overall left ventricular systolic function is normal with, an EF between 55 - 60 %. 4. The diastolic filling pattern is normal for the age of the patient 6.94 5. There is trace to mild mitral regurgitation. 6. Trace tricuspid regurgitation present. 7. The inferior vena cava is mildly dilated. BOBTAIL DRIVER: Jackelyn Yee RDCS
[2021-02-18] MEDS ORDERED: NICOTINE 14MG/24HR PATCH TRANSDERM SCH (13:15)
--- NOTE | 2021-02-18 13:57 | P.CN ---
Psychiatric Consult - . Consult date: 02/18/21 Consult:: 02/18/21 13:56 IDENTIFYING DATA: This patient is a single, employed, 40-year-old male with significant history of alcohol use disorder and depression who presented to the emergency department with a chief complaint of chest pain and alcohol withdrawal. HISTORY OF PRESENT ILLNESS: The patient presented to the hospital on 02/17/21, brought in on his own volition for alcohol withdrawal and chest pain. The patient was subsequently admitted to the medical floor for management of acute alcohol withdrawal and chest pain. Psychiatry has been consulted as the patient has a history of depression and suicidal ideation and heavy alcohol use. When evaluated by this provider, the patient does acknowledge that she has a history of depression but is currently not endorsing any significant depressive symptoms at this time. He is not reporting any significant symptoms of hopelessness, helplessness, low motivation, or suicidal or homicidal ideation, intention, and/or plan. He does report that he has had a history of suicidal thoughts but is not actively suicidal. He expresses significant future orientation stating that he plans to go to rehabilitation after this hospitalization to quit alcohol. He reports that he recently relapsed into heavy alcohol use this past and skipping and has been drinking up to a pint of hard liquor per day. The patient is not otherwise reporting any other psychiatric pathology at this time. He does not report any significant history of nicole or any history of psychotic symptoms. He is currently denying any auditory or visualizations. He is not bringing any paranoia or delusions. The patient was previously seen by psychiatry admitted to the inpatient psychiatric unit in 2018 where he was discharged on a regimen of Depakote. The patient reports that he does continue to follow up with his outpatient appointments but is currently not on any psychotropic medications. PAST PSYCHIATRIC HISTORY: Patient has a a history of depression and alcohol use disorder. The patient was previously prescribed Depakote and he also reports being on Vivitrol in the past. One psychiatric hospitalization in 2018 on [facility]. Patient is currently open with outpatient psychiatry treatment. Patient denies any history of suicide attempts in the past. PAST MEDICAL HISTORY: Additional Past Medical History / Comment(s): Alcoholism with seizure in 2018 from withdrawal History of Any Multi-Drug Resistant Organisms: None Reported Past Surgical History: No Surgical Hx Reported Past Psychological History: Anxiety Smoking Status: Current every day smoker Past Alcohol Use History: Abuse, Daily, Heavy Additional Past Alcohol Use History / Comment(s): currently drinking a 5th of vodka daily since . Was sober for 6months prior to . Past Drug Use History: None Reported ALLERGIES: Amoxicillin, Vivitrol as per patient report CHEMICAL DEPENDENCY HISTORY: The patient engages heavy alcohol use and has significant history of this problem. He has been to rehabilitation before and plans to go to rehab after this inpatient psychiatric admission. He has been drinking up to a pint of hard liquor per day. He recently started smoking t obacco again. FAMILY PSYCHIATRIC/SUBSTANCE USE HISTORY: No reported family psychiatric history. SOCIAL HISTORY: Patient was born and raised [place]. Single, never , and has 3 children living with their mother in [place]. He denies any legal issues, he denies any service. He reports no orthodoxy affiliation. He attends Alcoholics Anonymous and has sponsor. He currently lives in a sober living facility. She is employed at [employer]. MENTAL STATUS EXAM: General Appearance: Patient appears to be stated age is alert, pleasant, and cooperative. Patient appears to have fair hygiene and grooming wearing hospital gown with fair eye contact. Behavior: Patient is calmly lying in bed without any agitated behavior. Speech: Patient's speech is fluent and nonpressured. Mood/Affect: Patient reports their mood is "feeling better", affect is congruent Suicidality/Homicidality: Patient denies having any suicidal or homicidal ideation intent or plan. Perceptions: Patient denies any visual hallucinations and denies any auditory hallucinations Though content/process: There is no evidence of any delusional thought content and thought process is linear and goal-directed. Memory and concentration: AOX3, grossly intact for the purposes of this session. Can spell "WORLD" backwards Judgment and insight: Excellent IMPRESSIONS: Alcohol use disorder Nicotine dependence Major depression by history PLAN: -At this time patient DOES NOT meet criteria for inpatient psychiatric admission. The patient is currently future oriented and is not endorsing any imminent risk of harm to self or others at this time. -Would recommend the following medication changes/additions: No medication recommendations will be made at this time continue [facility] protocol for alcohol withdrawal. -Recommend social work to aid the patient in his desire to go to rehabilitation for alcohol use disorder -Psychiatry will sign off at this point, please contact with any questions. 02/18/21 13:56
[2021-02-18 14:12] VITALS: BMI 17.9
[2021-02-18 15:19] VITALS: BP 148/91; PULSE 100; RESP 18; TEMP 97.9
== END 2021-02-18 16:30 | disposition home or self-care (01) | DRG 897 ==
LOC: EC 19:32 → 5NMEDONC 21:48 → 6NMEDSUR 02-18 00:20
PROVIDERS: ADMIT Internal Medicine; ATTEND Internal Medicine
PROC: HZ2ZZZZ Detoxification Services for Substance Abuse Treatment (ICD-10-PCS; principal; 2021-02-17)
DX: F10.239 Alcohol dependence with withdrawal, unspecified (principal); R07.89 Other chest pain; I08.1 Rheumatic disorders of both mitral and tricuspid valves; E86.0 Dehydration; F17.210 Nicotine dependence, cigarettes, uncomplicated; F41.9 Anxiety disorder, unspecified; Z20.822 Contact with and (suspected) exposure to COVID-19; Z71.41 Alcohol abuse counseling and surveillance of alcoholic; Z71.6 Tobacco abuse counseling; Z88.1 Allergy status to other antibiotic agents; Z81.3 Family history of other psychoactive substance abuse and dependence
CPT/HCPCS: 36415; 71046; 80053; 82150; 83605; 83690; 83735; 84100; 84484; 85025; 85610; 85730; 87635; 93005; 93306; 96372; 96374; 96375; 99285

== ENCOUNTER 2021-03-18 10:41 | Emergency (ER) | payer OTHER ==
[2021-03-18 11:08] VITALS: BP 139/86; RESP 20; TEMP 98
[2021-03-18] MEDS ORDERED: LORazepam 2 MG/ML INJ IV STA (11:24)
[2021-03-18] MEDS ORDERED: SODIUM CHLORIDE 0.9% 1,000 ML IV STA (11:24)
--- NOTE | 2021-03-18 11:30 | ED ---
General Adult HPI - General Chief complaint: Alcohol Stated complaint: chest pain & alcohol withdrawal Time Seen by Provider: 03/18/21 11:12 Source: patient Mode of arrival: ambulatory Limitations: no limitations - History of Present Illness Initial comments: 40-year-old male presents to the emergency room for a chief complaint of alcohol withdrawal. Patient states he is trying to quit drinking. His last drink was yesterday afternoon. States he usually drinks a fifth of vodka a day. States he feels like he is withdrawing. States that his chest has been hurting which is the same as it has been in the past with his withdrawals. He was just evi luated for this one month ago. Patient states it is a sharp pain. Does not radiate to the his back arm or jaw. non-exertional. Patient denies shortness of breath. Patient has no other complaints at this time including shortness of breath, nausea or vomiting, headache, or visual changes. - Related Data Home Medications Medication Instructions Recorded Confirmed Ibuprofen [Motrin] 800 mg PO BID PRN 02/17/21 03/18/21 Allergies Allergy/AdvReac Type Severity Reaction Status Date / Time amoxicillin Allergy Swelling Verified 03/18/21 12:04 Review of Systems ROS Statement: Those systems with pertinent positive or pertinent negative responses have been documented in the HPI. ROS Other: All systems not noted in ROS Statement are negative. Past Medical History Additional Past Medical History / Comment(s): Alcoholism with seizure in 2018 from withdrawal History of Any Multi-Drug Resistant Organisms: None Reported Past Surgical History: No Surgical Hx Reported Past Psychological History: Anxiety Smoking Status: Current every day smoker Past Alcohol Use History: Abuse, Daily, Heavy Past Drug Use History: None Reported - Past Family History Mother Family Medical History: No Reported History Additional Family Medical History / Comment(s): drug addict Father Additional Family Medical History / Comment(s): etoh General Exam Limitations: no limitations General appearance: alert, in no apparent distress Head exam: Present: atraumatic Eye exam: Present: normal appearance, PERRL, EOMI. Absent: scleral icterus, conjunctival injection ENT exam: Present: normal exam, mucous membranes moist Neck exam: Present: normal inspection, full ROM. Absent: tenderness Respiratory exam: Present: normal lung sounds bilaterally. Absent: respiratory distress, wheezes Cardiovascular Exam: Present: regular rate, normal rhythm, normal heart sounds GI/Abdominal exam: Present: soft, normal bowel sounds. Absent: distended, t enderness Course Vital Signs 03/18/21 10:59 Temperature 98 F Pulse Rate 113 H Respiratory 20 Rate Blood Pressure 139/86 O2 Sat by Pulse 96 Oximetry EKG Findings - EKG Comments: EKG Findings:: Sinusitis cardiac, ventricular rate 105, TN interval 134, QTC 415 Medical Decision Making - Medical Decision Making pt was seen and evaluated and had Echocardiogram done last month, unremarkable study. Vitals are stable. Patient sightly tachycardic likely related to alcoholic drawn. CBC and CMP are unremarkable. Troponin is negative. EKG is nonischemic. Patient's pain likely related to withdrawals given this happens every time he withdraws. States the pain is the same as it was last month when he was admitted and evaluated for cardiology. She was given Valium and discharged home. He will follow-up with his doctor and return for any worsening symptoms. - Lab Data Result diagrams: 03/18/21 11:44 03/18/21 11:44 Lab Results 03/18/21 03/18/21 03/18/21 Range/Units 11:44 11:44 11:44 WBC 9.8 (3.8-10.6) k/uL RBC 4.63 (4.30-5.90) m/uL Hgb 15.0 (13.0-17.5) gm/dL Hct 44.6 (39.0-53.0) % MCV 96.3 (80.0-100.0) fL MCH 32.3 (25.0-35.0) pg MCHC 33.5 (31.0-37.0) g/dL RDW 14.5 (11.5-15.5) % Plt Count 178 (150-450) k/uL MPV 7.7 Neutrophils % 91 % Lymphocytes % 5 % Monocytes % 3 % Eosinophils % 0 % Basophils % 0 % Neutrophils # 8.9 H (1.3-7.7) k/uL Lymphocytes # 0.5 L (1.0-4.8) k/uL Monocytes # 0.3 (0-1.0) k/uL Eosinophils # 0.0 (0-0.7) k/uL Basophils # 0.0 (0-0.2) k/uL Sodium 138 (137-145) mmol/L Potassium 4.6 (3.5-5.1) mmol/L Chloride 103 (98-107) mmol/L Carbon Dioxide 19 L (22-30) mmol/L Anion Gap 16 mmol/L BUN 19 (9-20) mg/dL Creatinine 0.84 (0.66-1.25) mg/dL Est GFR (CKD-EPI)AfAm >90 (>60 ml/min/1.73 sqM) Est GFR (CKD-EPI)NonAf >90 (>60 ml/min/1.73 sqM) Glucose 80 (74-99) mg/dL Calcium 9.7 (8.4-10.2) mg/dL Magnesium 2.0 (1.6-2.3) mg/dL Total Bilirubin 1.2 (0.2-1.3) mg/dL AST 58 (17-59) U/L ALT 30 (4-49) U/L Alkaline Phosphatase 101 (38-126) U/L Troponin I <0.012 (0.000-0.034) ng/mL Total Protein 7.2 (6.3-8.2) g/dL Albumin 4.6 (3.5-5.0) g/dL Lipase 110 (23-300) U/L Disposition Clinical Impression: Alcohol withdrawal Disposition: HOME SELF-CARE Condition: Good Instructions (If sedation given, give patient instructions): Alcohol Withdrawal (ED) Additional Instructions: Please follow-up with your doctor in one to 2 days. Return to the emergency room for any worsening symptoms. Is patient prescribed a controlled substance at d/c from ED?: No Referrals: Miriam Gates MD [STAFF PHYSICIAN] - 1-2 days Time of Disposition: 13:12
[2021-03-18 12:11] LABS: ALT 30 U/L (4-49); AST 58 U/L (17-59); African American GFR (CKD) >90 (>60 ml/min/1.73 sqM); Albumin 4.6 g/dL (3.5-5.0); Alkaline Phosphatase 101 U/L (38-126); Anion Gap 16 mmol/L; Blood Urea Nitrogen 19 mg/dL (9-20); Calcium 9.7 mg/dL (8.4-10.2); Carbon Dioxide 19 mmol/L (22-30); Chloride 103 mmol/L (98-107); Glucose 80 mg/dL (74-99); Lipase 110 U/L (23-300); Non-African American GFR(CKD) >90 (>60 ml/min/1.73 sqM); Potassium 4.6 mmol/L (3.5-5.1); Sodium 138 mmol/L (137-145); Total Bilirubin 1.2 mg/dL (0.2-1.3); Total Protein 7.2 g/dL (6.3-8.2)
[2021-03-18 12:13] LABS: Basophils % (A) 0 %; Eosinophils % (A) 0 %; HCT 44.6 % (39.0-53.0); Lymphocytes # (A) 0.5 k/uL (1.0-4.8); Lymphocytes % (A) 5 %; MCH 32.3 pg (25.0-35.0); MCHC 33.5 g/dL (31.0-37.0); MCV 96.3 fL (80.0-100.0); Mean Platelet Volume 7.7; Monocytes # (A) 0.3 k/uL (0-1.0); Monocytes % (A) 3 %; Neutrophils # (A) 8.9 k/uL (1.3-7.7); Neutrophils % (A) 91 %; Platelet Count 178 k/uL (150-450); RBC 4.63 m/uL (4.30-5.90); RDW 14.5 % (11.5-15.5); WBC 9.8 k/uL (3.8-10.6)
--- NOTE | 2021-03-18 12:39 | XR ---
EXAMINATION TYPE: XR chest 2V DATE OF EXAM: 03/18/2021 COMPARISON: 02/17/2021 HISTORY: 40-year-old male with cough and chest pain TECHNIQUE: PA and lateral views FINDINGS: The cardiomediastinal silhouette, aorta, and pulmonary vasculature are within normal limits. There is hyperinflation. Otherwise, lungs and pleural spaces are clear. IMPRESSION: Hyperinflation may relate to depth of inspiration or underlying emphysema. Clinically correlate. Othe rwise, no acute cardiopulmonary process.
[2021-03-18] MEDS ORDERED: DIAZEPAM 5 MG/ML 2 ML INJ IVP STA (13:09)
[2021-03-18 13:24] VITALS: PULSE 96
== END 2021-03-18 14:37 | disposition home or self-care (01) ==
LOC: EC 10:41
DX: F10.239 Alcohol dependence with withdrawal, unspecified (principal); F41.9 Anxiety disorder, unspecified; F17.200 Nicotine dependence, unspecified, uncomplicated
CPT/HCPCS: 36415; 93005; 80053; 83690; 83735; 84484; 85025; 71046; 99285; 96374; 96361 ×2; J3360

== ENCOUNTER 2021-07-09 08:48 | Emergency (ER) | payer OTHER ==
[2021-07-09 09:02] VITALS: BP 115/82; PULSE 86; RESP 16; TEMP 97.9
[2021-07-09] MEDS ORDERED: ORPHENADRINE 30 MG/ML 2 ML VIAL IM STA (09:24)
[2021-07-09] MEDS ORDERED: LIDOCAINE 5% PATCH TOPICAL SCH (09:30)
--- NOTE | 2021-07-09 09:34 | ED ---
General Adult HPI - General Chief complaint: Neck Pain/Injury Stated complaint: Neck pain Time Seen by Provider: 07/09/21 09:20 Source: patient, RN notes reviewed, old records reviewed Mode of arrival: ambulatory Limitations: no limitations - History of Present Illness Initial comments: This is a well-appearing 40-year-old male that presents with right-sided neck pain when he woke this morning. Patient states that he was having intercourse with his significant other yesterday at 9 PM when he felt a pull on the right side of his neck. When he woke this morning it was tight and painful to move worse with palpation. He denies any other injuries. He denies any medical history. He is a former smoker. Patient has no focal neurological deficits. -: hour(s) (12) Location: neck Severity scale (1-10): 9 Quality: other (tight) Consistency: constant Improves with: none Worsens with: movement Associated Symptoms: denies other symptoms - Related Data Home Medications Medication Instructions Recorded Confirmed Ibuprofen [Motrin] 800 mg PO BID PRN 02/17/21 03/18/21 Previous Rx's Medication Instructions Recorded Ibuprofen [Motrin] 600 mg PO Q8HR PRN #30 tab 07/09/21 Lidocaine 5% Patch [Lidoderm] 1 patch TOPICAL DAILY 10 Days #10 07/09/21 patch Allergies Allergy/AdvReac Type Severity Reaction Status Date / Time amoxicillin Allergy Swelling Verified 07/09/21 09:02 Review of Systems ROS Statement: Those systems with pertinent positive or pertinent negative responses have been documented in the HPI. ROS Other: All systems not noted in ROS Statement are negative. Past Medical History Additional Past Medical History / Comment(s): Alcoholism with seizure in 2018 from withdrawal History of Any Multi-Drug Resistant Organisms: None Reported Past Surgical History: No Surgical Hx Reported Past Psychological History: Anxiety Smoking Status: Current every day smoker Past Alcohol Use History: Abuse, Daily, Heavy Past Drug Use History: None Reported - Past Family History Mother Family Medical History: No Reported History Additional Family Medical History / Comment(s): drug addict Father Additional Family Medical History / Comment(s): etoh General Exam Limitations: no limitations General appearance: alert, in no apparent distress Head exam: Present: atraumatic, normocephalic ENT exam: Present: normal oropharynx, mucous membranes moist Neck exam: Present: normal inspection, tenderness (right trapezius). Absent: meningismus, lymphadenopathy, thyromegaly Respiratory exam: Present: normal lung sounds bilaterally. Absent: respiratory distress, accessory muscle use Cardiovascular Exam: Present: regular rate, normal rhythm Extremities exam: Present: normal capillary refill Back exam: Present: full ROM. Absent: tenderness Neurological exam: Present: alert, oriented X3 Psychiatric exam: Present: normal affect, normal mood Skin exam: Present: warm, dry, normal color. Absent: cyanosis, diaphoretic Course Vital Signs 07/09/21 09:00 Temperature 97.9 F Pulse Rate 86 Respiratory 16 Rate Blood Pressure 115/82 O2 Sat by Pulse 100 Oximetry Medical Decision Making - Medical Decision Making Well-appearing 40-year-old presents ambulatory with complaints of right pain upon waking this morning. Patient states he felt a pull during sexual intercourse in the right side of his neck yesterday around 9 PM. Denies any focal neurologic deficits. Denies any medical history. He was given a shot of Norflex in the emergency room. I did discuss that this may take a couple of days for his pain to resolve and to return to the emergency room with any new or concerning symptoms. He was discharged home with Lidoderm patches and a Motrin prescription. Patient is agreeable to this plan of care. Case discussed with Dr. Cuello Disposition Clinical Impression: Strain of neck muscle Disposition: HOME SELF-CARE Condition: Good Instructions (If sedation given, give patient instructions): Cervical Strain ( ED) Additional Instructions: Increase your fluid intake, take Motrin for any pain and inflammation and also use the Lidoderm patches as prescribed for pain relief. This may take a week or more to completely resolve. Follow-up with primary care doctor next week as needed. Return to the emergency room with any new or concerning symptoms. Prescriptions: Lidocaine 5% Patch [Lidoderm] 1 patch TOPICAL DAILY 10 Days #10 patch Ibuprofen [Motrin] 600 mg PO Q8HR PRN #30 tab PRN Reason: Pain Is patient prescribed a controlled substance at d/c from ED?: No Referrals: Regina Juarez MD [Primary Care Provider] - 1-2 days Time of Disposition: 09:35
== END 2021-07-09 09:49 | disposition home or self-care (01) ==
LOC: EC 08:48
DX: S16.1XXA Strain of muscle, fascia and tendon at neck level, initial encounter (principal); F17.200 Nicotine dependence, unspecified, uncomplicated; Z88.0 Allergy status to penicillin; W19.XXXA Unspecified fall, initial encounter
CPT/HCPCS: 99283; 96372; J2360

== ENCOUNTER 2023-07-26 12:56 | Observation (INO) | payer OTHER ==
--- NOTE | 2023-07-26 13:13 | ED ---
General Adult HPI - General Chief complaint: Recheck/Abnormal Lab/Rx Stated complaint: abd pain Time Seen by Provider: 07/26/23 13:00 Source: patient, EMS, RN notes reviewed, old records reviewed Mode of arrival: EMS Limitations: no limitations - History of Present Illness Initial comments: This is a 43-year-old male who presents to the emergency department from [facility]. According to [place] patient exhibited some abdominal pain. Patient states he was not in any pain they just startled him by palpating his abdomen without informing him first. Patient states he is there for alcohol abuse his last drink was at 4 AM. Patient states he has no abdominal pain he denies any nausea vomiting diarrhea. Patient is any fever chills. Patient has any back pain. Patient [place] any other complaints he just wants to go to rehab. - Related Data Home Medications Medication Instructions Recorded Confirmed Ibuprofen [Motrin] 800 mg PO BID PRN 02/17/21 03/18/21 Previous Rx's Medication Instructions Recorded Ibuprofen [Motrin] 600 mg PO Q8HR PRN #30 tab 07/09/21 Lidocaine 5% Patch [Lidoderm] 1 patch TOPICAL DAILY 10 Days #10 07/09/21 patch Allergies Allergy/AdvReac Type Severity Reaction Status Date / Time amoxicillin Allergy Swelling Verified 07/26/23 13:02 Review of Systems ROS Statement: Those systems with pertinent positive or pertinent negative responses have been documented in the HPI. ROS Other: All systems not noted in ROS Statement are negative. Past Medical History Additional Past Medical History / Comment(s): Alcoholism with seizure in 2018 from withdrawal History of Any Multi-Drug Resistant Organisms: None Reported Past Surgical History: No Surgical Hx Reported Past Psychological History: Anxiety Smoking Status: Current every day smoker Past Alcohol Use History: Abuse, Daily, Heavy Past Drug Use History: None Reported - Past Family History Mother Family Medical History: No Reported History Additional Family Medical History / Comment(s): drug addict Father Additional Family Medical History / Comment(s): etoh General Exam - General Exam Comments Initial Comments: GENERAL: Patient is well-developed and well-nourished. Patient is nontoxic and well- hydrated and is in no acute distress. ENT: Neck is soft and supple. No significant lymphadenopathy is noted. Oropharynx is clear. Moist mucous membranes. Neck has full range of motion without eliciting any pain. EYES: The sclera were anicteric and conjunctiva were pink and moist. Extraocular movements were intact and pupils were equal round and reactive to light. Eyelids were unremarkable. PULMONARY: Unlabored respirations. Good breath sounds bilaterally. No audible rales rhon chi or wheezing was noted. CARDIOVASCULAR: There is a regular rate and rhythm without any murmurs gallops or rubs. ABDOMEN: Soft and nontender with normal bowel sounds. No matter where I palpated his abdomen he had absolutely no tenderness SKIN: Skin is clear with no lesions or rashes and otherwise unremarkable. NEUROLOGIC: Patient is alert and oriented x3. Cranial nerves II through XII are grossly intact. Motor and sensory are also intact. Normal speech, volume and content. Symmetrical smile. MUSCULOSKELETAL: Normal extremities with adequate strength and full range of motion. LYMPHATICS: No significant lymphadenopathy is noted PSYCHIATRIC: Normal psychiatric evaluation. Limitations: no limitations Course Vital Signs 07/26/23 12:59 Temperature 98.5 F Pulse Rate 105 H Respiratory 22 Rate Blood Pressure 117/84 O2 Sat by Pulse 98 Oximetry Medical Decision Making - Medical Decision Making Was pt. sent in by a medical professional or institution (, PA, [employer]ER, urgent care, hospital, or correction...) When possible be specific @ -Patient was sent in by [facility] Did you speak to anyone other than the patient for history (EMS, parent, family, police, friend...)? What history was obtained from this source @ -No Did you review nursing and triage notes (agree or disagree)? Why? @ -I reviewed and agree with nursing and triage notes Were old charts reviewed (outside hosp., previous admission, EMS record, old EKG, old radiological studies, urgent care reports/EKG's, correction records)? Report findings @ -No old charts were reviewed Differential Diagnosis (chest pain, altered mental status, abdominal pain women, abdominal pain men, vaginal bleeding, weakness, fever, dyspnea, syncope, headache, dizziness, GI bleed, back pain, seizure, CVA, palpatations, mental health, musculoskeletal)? @ -Differential Abdominal Pain Men: Appendicitis, cholecystitis, diverticulosis, ischemic bowel, pancreatitis, hepatitis, UTI, gastroenteritis, AAA, incarcerated hernia, bowel obstruction, constipation, inflammatory bowel, hepatitis, peptic ulcer disease, splenic infarction, perforated viscus, testicular torsion, this is not meant to be an all-inclusive list EKG interpreted by me (3pts min.). @ -As above X-rays interpreted by me (1pt min.). @ -None done CT interpreted by me (1pt min.). @ -None done U/S interpreted by me (1pt. min.). @ -None done What testing was considered but not performed or refused? (CT, X-rays, U/S, labs)? Why? @ -None What meds were considered but not given or refused? Why? @ -None Did you discuss the management of the patient with other professionals (professionals i.e. , PA, [employer]SEM[employer]ER, lab, RT, psych nurse, social service technician, car and yard supervisor, teacher, nuclear officer, housing case manager)? Give summary @ -[facility] admit the patient wrote admitting orders Was smoking cessation discussed for >3mins.? @ -No Was critical care preformed (if so, how long)? @ -No Were there social determinants of health that impacted care today? How? (Homelessness, low income, unemployed, alcoholism, drug addiction, transportation, low edu. Level, literacy, decrease access to med. care, [facility], rehab)? @ -No Was there de-escalation of care discussed even if they declined (Discuss DNR or withdrawal of care, Hospice)? DNR status @ -No What co-morbidities impacted this encounter? (DM, HTN, Smoking, COPD, CAD, Cancer, CVA, ARF, Chemo, Hep., AIDS, mental health diagnosis, sleep apnea, morbid obesity)? @ -None Was patient admitted / discharged? Hospital course, mention meds given and route, prescriptions, significant lab abnormalities, going to OR and other pertinent info. @ -Patient denies any abdominal pain when I palpate him he denied any abdominal pain. Patient has epigastric abdominal pain with an elevated lipase. Patient will be admitted to the hospital [facility] admit the patient wrote admitting orders. Undiagnosed new problem with uncertain prognosis? @ -No Drug Therapy requiring intensive monitoring for toxicity (Heparin, Nitro, Insulin, Cardizem)? @ -No Were any procedures done? @ -No Diagnosis/symptom? @ -Pancreatitis Acute, or Chronic, or Acute on Chronic? @ -Acute Uncomplicated (without systemic symptoms) or Complicated (systemic symptoms)? @ -Complicated Side effects of treatment? @ -No Exacerbation, Progression, or Severe Exacerbation? @ -No Poses a threat to life or bodily function? How? (Chest pain, [place], [place], pneumonia, PE, COPD, DKA, ARF, appy, cholecystitis, CVA, Diverticulitis, Homicidal, Suicidal, threat to staff... and all critical care pts) @ -This can lead to electrolyte abnormalities and morbidity mortality. Diagnosis/symptom? @ -Alcohol intoxication Acute, or Chronic, or Acute on Chronic? @ -Acute Uncomplicated (without systemic symptoms) or Complicated (systemic symptoms)? @ -Complicated Side effects of treatment? @ -None Exacerbation, Progression, or Severe Exacerbation] @ -No Poses a threat to life or bodily function? @ -No - Lab Data Result diagrams: 07/26/23 13:26 07/26/23 13:26 Lab Results 07/26/23 07/26/23 Range/Units 13:26 13:26 WBC 5.3 (3.8-10.6) k/uL RBC 4.60 (4.30-5.90) m/uL Hgb 14.5 (13.0-17.5) gm/dL Hct 42.2 (39.0-53.0) % MCV 91.6 (80.0-100.0) fL MCH 31.6 (25.0-35.0) pg MCHC 34.5 (31.0-37.0) g/dL RDW 13.6 (11.5-15.5) % MPV 8.2 Sodium 133 L (137-145) mmol/L Potassium 3.8 (3.5-5.1) mmol/L Chloride 94 L (98-107) mmol/L Carbon Dioxide 27 (22-30) mmol/L Anion Gap 12 mmol/L BUN 9 (9-20) mg/dL Creatinine 0.75 (0.66-1.25) mg/dL Est GFR (CKD-EPI)AfAm >90 (>60 ml/min/1.73 sqM) Est GFR (CKD-EPI)NonAf >90 (>60 ml/min/1.73 sqM) Glucose 93 (74-99) mg/dL Calcium 8.9 (8.4-10.2) mg/dL Total Bilirubin 1.2 (0.2-1.3) mg/dL AST 257 H (17-59) U/L ALT 123 H (4-49) U/L Alkaline Phosphatase 200 H (38-126) U/L Total Protein 6.9 (6.3-8.2) g/dL Albumin 4.3 (3.5-5.0) g/dL Lipase 1672 H (23-300) U/L Disposition Clinical Impression: Alcohol intoxication, Acute pancreatitis Disposition: ADMITTED IP TO THIS HOSP Referrals: None,Stated [Primary Care Provider] - 1-2 days Time of Disposition: 14:33
[2023-07-26 13:50] LABS: Basophils % (A) 1 %; Eosinophils % (A) 0 %; HCT 42.2 % (39.0-53.0); HGB 14.5 gm/dL (13.0-17.5); Lymphocytes # (A) 0.8 k/uL (1.0-4.8); Lymphocytes % (A) 15 %; MCH 31.6 pg (25.0-35.0); MCHC 34.5 g/dL (31.0-37.0); MCV 91.6 fL (80.0-100.0); Mean Platelet Volume 8.2; Monocytes # (A) 0.3 k/uL (0-1.0); Monocytes % (A) 6 %; Neutrophils # (A) 4.1 k/uL (1.3-7.7); Neutrophils % (A) 76 %; RDW 13.6 % (11.5-15.5); WBC 5.3 k/uL (3.8-10.6)
[2023-07-26 14:10] LABS: ALT 123 U/L (4-49); AST 257 U/L (17-59); African American GFR (CKD) >90 (>60 ml/min/1.73 sqM); Albumin 4.3 g/dL (3.5-5.0); Alkaline Phosphatase 200 U/L (38-126); Anion Gap 12 mmol/L; Blood Urea Nitrogen 9 mg/dL (9-20); Calcium 8.9 mg/dL (8.4-10.2); Carbon Dioxide 27 mmol/L (22-30); Chloride 94 mmol/L (98-107); Glucose 93 mg/dL (74-99); Lipase 1672 U/L (23-300); Non-African American GFR(CKD) >90 (>60 ml/min/1.73 sqM); Potassium 3.8 mmol/L (3.5-5.1); Sodium 133 mmol/L (137-145); Total Bilirubin 1.2 mg/dL (0.2-1.3); Total Protein 6.9 g/dL (6.3-8.2)
[2023-07-26] MEDS ORDERED: LORazepam 2 MG/ML INJ IV PRN (14:34)
[2023-07-26] MEDS: SODIUM CHLORIDE 0.9% 1,000 ML IV ONE (14:41)
[2023-07-26] MEDS: THIAMINE 100 MG/ML 2 ML VIAL IM STA (14:45)
[2023-07-26 14:48] LABS: Platelet Count 88 k/uL (150-450)
[2023-07-26 14:49] LABS: RBC Morphology Normal
[2023-07-26] MEDS: LORazepam 1 MG TAB PO PRN ×2 (14:51→22:20)
[2023-07-26] MEDS: KETOROLAC 15 MG/ML 1 ML VIAL IVP PRN (19:32)
[2023-07-26] MEDS: PANTOPRAZOLE 40 MG/10 ML VIAL IVP SCH (19:32)
[2023-07-26] MEDS: LORazepam 2 MG/ML INJ IV PRN (19:38)
[2023-07-26] MEDS ORDERED: LORazepam 1 MG/0.5 ML VIAL IV PRN (23:06)
[2023-07-27] MEDS ORDERED: LORazepam 2 MG/ML INJ IV PRN (00:27)
[2023-07-27] MEDS: LORazepam 2 MG/ML INJ IV PRN (00:32)
[2023-07-27] MEDS: LORazepam 1 MG/0.5 ML VIAL IV PRN (02:15)
--- NOTE | 2023-07-27 04:24 | P.HPIM ---
History of Present Illness Patient is a pleasant 43 years old male with past medical history of alcohol use disorder and alcoholic seizure Presents from [facility] for severe alcohol withdrawal Patient awake alert he looks withdrawn in his bed States that he went to [facility] 1 day earlier because he wanted to quit drinking alcohol. Patient states that he lost his job and everything that is why he wants to quit drinking Also he smokes about 1 pack/day and he was counseled to quit and he agrees to the nicotine patch He denies illicit drugs No abdominal pain chest pain. No dyspnea weakness headache or dizziness No suicidal or homicidal ideation No significant abdominal pain or tenderness However on admission patient was noticed to have elevated lipase 1672 Also his liver enzymes moderately elevated Rest of CBC, BMP were unremarkable Also he is hemodynamically stable Review of Systems Review of systems CONSTITUTIONAL: No fever, no malaise, no fatigue. HEENT: No recent visual problems or hearing problems. Denied any sore throat. CARDIOVASCULAR: No orthopnea, PND, no palpitations, no syncope. PULMONARY: No shortness of breath, no cough, no hemoptysis. GASTROINTESTINAL: No diarrhea, no nausea, no vomiting, no abdominal pain. Normoactive bowel sounds. NEUROLOGICAL: No headaches, no weakness, no numbness. HEMATOLOGICAL: Denies any bleeding or petechiae. GENITOURINARY: Denies any burning micturition, frequency, or urgency. MUSCULOSKELETAL/RHEUMATOLOGICAL: Denies any joint pain, swelling, or any muscle pain. ENDOCRINE: Denies any polyuria or polydipsia. Past Medical History Additional Past Medical History / Comment(s): Alcoholism with seizure in 2018 from withdrawal History of Any Multi-Drug Resistant Organisms: None Reported Past Surgical History: No Surgical Hx Reported Past Psychological History: Anxiety Smoking Status: Current every day smoker Past Alcohol Use History: Abuse, Daily, Heavy Past Drug Use History: None Reported - Past Family History Mother Family Medical History: No Reported History Additional Family Medical History / Comment(s): drug addict Father Additional Family Medical History / Comment(s): etoh Medications and Allergies Home Medications Medication Instructions Recorded Confirmed Type No Known Home Medications 07/26/23 07/26/23 History Allergies Allergy/AdvReac Type Severity Reaction Status Date / Time amoxicillin Allergy Swelling, Verified 07/26/23 15:07 rash Physical Exam Vitals: Vital Signs Temp Pulse Resp BP Pulse Ox 05/16/24 12:59 98.5 F 105 H 22 117/84 98 Intake and Output 07/26/23 07/26/23 07/26/23 06:59 14:59 22:59 Other: Weight 63.503 kg GENERAL: The patient is alert and oriented x3, not in any acute distress. Well developed, well nourished. HEENT: Pupils are round and equally reacting to light. EOMI. No scleral icterus. No conjunctival pallor. Normocephalic, atraumatic. No pharyngeal erythema. No thyromegaly. CARDIOVASCULAR: S1 and S2 present. No murmurs, rubs, or gallops. PULMONARY: Chest is clear to auscultation, no wheezing , no crackles. ABDOMEN: Soft, nontender, nondistended, normoactive bowel sounds. No palpable organomegaly. MUSCULOSKELETAL: No joint swelling or deformity. EXTREMITIES: No cyanosis, clubbing, or pedal edema. NEUROLOGICAL: Gross neurological examination did not reveal any focal deficits. SKIN: No rashes. no petechiae. Results CBC & Chem 7: 07/26/23 13:26 07/26/23 13:26 Labs: Abnormal Lab Results - Last 24 Hours (Table) 07/26/23 07/26/23 Range/Units 13:26 13:26 Plt Count 88 L (150-450) k/uL Lymphocytes # 0.8 L (1.0-4.8) k/uL Sodium 133 L (137-145) mmol/L Chloride 94 L (98-107) mmol/L AST 257 H (17-59) U/L ALT 123 H (4-49) U/L Alkaline Phosphatase 200 H (38-126) U/L Lipase 1672 H (23-300) U/L Assessment and Plan Assessment: Alcohol use disorders with risk of alcohol withdrawal, delirium tremens Alcoholic pancreatitis Alcoholic transaminitis Patient looks depressed Plan: Start CIWA protocol Thiamine Normal saline at 75 mL/h Bowel rest and advance diet as tolerated Pain medication, currently on Toradol as needed Psychiatric evaluation is requested GI and DVT prophylaxis with Protonix and subcutaneous heparin
[2023-07-27] MEDS ORDERED: DEXTROSE 5%-0.45% NACL 1,000 ML IV SCH (04:30)
[2023-07-27] MEDS: SODIUM CHLORIDE 0.9% 1,000 ML IV SCH (06:46)
[2023-07-27] MEDS: THIAMINE 100 MG TAB PO SCH (09:09)
[2023-07-27 11:20] LABS: HCT 38.7 % (39.6-50.0); HGB 13.4 g/dL (13.0-17.0); Immature Platelet Fraction 6.7 % (1.1-6.1); MCH 31.8 pg (27.0-32.0); MCHC 34.6 g/dL (32.0-37.0); MCV 91.9 FL (80.0-97.0); Mean Platelet Volume 10.6 FL (9.5-12.2); NRBC Per 100 WBC 0 X 10*3/uL (0.00-0.01); Platelet Count 58 X 10*3/uL (140-440); RBC 4.21 X 10*6/uL (4.40-5.60); RDW 13.7 % (11.5-14.5); WBC 2.65 X 10*3/uL (4.50-10.00)
[2023-07-27 11:27] LABS: Albumin 4.3 g/dL (3.8-4.9); Albumin/Globulin Ratio 2.26 Ratio (1.60-3.17); Bilirubin, Conjugated 0.56 mg/dL (0.20-0.40); Bilirubin,Unconjugated 0.84 mg/dL (0.20-1.00); Globulin 1.9 g/dL (1.6-3.3); Total Bilirubin 1.4 mg/dL (0.3-1.2); Total Protein 6.2 g/dL (6.2-8.2)
[2023-07-27 13:24] VITALS: BMI 17.9
--- NOTE | 2023-07-27 14:58 | P.CN ---
Psychiatric Consult - . Consult date: 07/27/23 Consult:: 07/27/23 13:41 IDENTIFYING DATA: This patient is a single, employed, 43-year-old male with significant history of alcohol use disorder and depression who presented to the emergency department with a chief complaint of abd pain and alcohol withdrawal from rehab. HISTORY OF PRESENT ILLNESS: The patient presented to the hospital on on 07/25 with abdominal pain coming from [facility]. Patient reported a history of drinking alcohol, states that last drink was 4 AM the previous night, sodium was 133, LFTs were elevated. Lipase was also elevated at 1672 which is improving today. Patient was admitted for acute pancreatitis and also alcohol withdrawal. Patient was seen sleeping in the room, has been receiving Ativan as needed for alcohol withdrawal. He was agreeable to speak to story writer. He states that he came in for alcohol withdrawal, states that he was sent here by [facility] because of the "pancreas problem" however states that now he has no pain. He is not having any food at this time. Claims that he does have some anxiety mainly related to the withdrawal, minor tremors in his hands, denies any history of severe alcohol withdrawal. Denies any history of seizures. He claims that his mood is fair at this time denying any depression. He states that his father recently and has been drinking more heavily since, states that he drinks about 1/5 of vodka a day. He claims that he has been sleeping fairly, appetite has been poor. He remains fairly focused on getting back to [facility] because he believes he needs rehab at this time. He does not report any significant history of nicole or any history of psychotic symptoms. He is currently denying any auditory or visualizations. He is not bringing any paranoia or delusions. Patient is currently using cigarettes, alcohol as desc ribed above, last drink was 2 days ago, denies any other recreational drug use. PAST PSYCHIATRIC HISTORY: Patient has a a history of depression/anxiety and alcohol use disorder. The patient was previously prescribed Depakote and he also reports being on Vivitrol in the past. Patient is currently not taking any psychiatric medications. One psychiatric hospitalization in 2018 on [facility]. Patient is currently not open with outpatient psychiatry treatment. Patient denies any history of suicide attempts in the past. PAST MEDICAL HISTORY: as per medical H and P ALLERGIES: Amoxicillin CHEMICAL DEPENDENCY HISTORY: As per HPI FAMILY PSYCHIATRIC/SUBSTANCE USE HISTORY: No reported family psychiatric history. SOCIAL HISTORY: Patient was born and raised in [place] in [place]. Single, never , and has 3 children living with their mother in [place]. He denies any legal issues, he denies any service. He reports no yazdanism affiliation. Currently he is living with his girlfriend in a house. He is unemployed. MENTAL STATUS EXAM: General Appearance: Patient appears to be thin, wearing a hat, stated age is alert, pleasant, and attempts to be cooperative. Patient appears to have fair hygiene and grooming wearing hospital gown with fair eye contact. Behavior: Patient is calmly lying in bed without any agitated behavior. Attempts to cooperate. Speech: Patient's speech is fluent and nonpressured. Pray Mood/Affect: Patient reports their mood is "better just a bit anxious", affect is congruent and constricted Suicidality/Homicidality: Patient denies having any suicidal or homicidal ideation intent or plan. Perceptions: Patient denies any visual hallucinations and denies any auditory hallucinations Though content/process: There is no evidence of any delusional thought content and thought process is linear and goal-directed. Pray, focused on rehab Memory and concentration: AOX3, grossly intact for the purposes of this session. Can spell "WORLD" backwards Judgment and insight: fair IMPRESSIONS: Alcohol use disorder Nicotine dependence History of depression and anxiety PLAN: -At this time patient DOES NOT meet criteria for inpatient psychiatric admission. -Would recommend the following medication changes/additions: Patient is agreeable to try Zoloft, will give 1 dose of 25 mg today and start with 50 mg tomorrow for mood/anxiety. Patient is not interested in anticraving medications at this time for alcohol use. Trazodone 25 mg nightly as needed for insomnia. -CIWA protocol with PRN Ativan for alcohol withdrawal. Continue to monitor vital signs. -bake room worker to provide patient with outpatient mental health/psychiatry resources for appropriate follow up upon discharge -Digital Sales Representative spoke with patient about substance abuse and the harmful effects on medical and mental health, patient verbally understood and agreed. -bake room worker to provide patient substance use treatment resources including AA/NA meetings in the community. -bake room worker to provide patient with access line number to call for inpatient substance rehab -Communicated plan to patient's nurse -Psychiatry will sign off at this time -Please contact with any questions.
[2023-07-27] MEDS: SERTRALINE 50 MG TAB PO STA (17:25)
[2023-07-27 21:37] VITALS: RESP 18
[2023-07-27] MEDS: LORazepam 0.5 MG TAB PO PRN (23:09)
[2023-07-28] MEDS: traZODone HCL 50 MG TAB PO PRN (01:16)
[2023-07-28] MEDS: NICOTINE 21MG/24HR PATCH TRANSDERM SCH (08:24)
[2023-07-28] MEDS: SERTRALINE 50 MG TAB PO SCH (08:24)
[2023-07-28 08:46] VITALS: BP 114/66; PULSE 103; TEMP 99.4
--- NOTE | 2023-07-29 08:30 | P.DS ---
Providers Date of admission: 07/26/23 14:36 Attending physician: Madyson Hong Consults: 07/27/23 04:19 Consult Physician Routine Consulting Provider: Horace Calloway Consult Reason/Comments: Depression, alcoholic Do you want consulting provider notified?: Yes, Notify in am Primary care physician: Stated None Hospital Course: pt was not discharged but left [facility]a . please refer to the last progress note for more details i came to see the pt and he left ama before i have a chance to see him or talk to him , pt has capacity to make decision for himself Plan - Discharge Summary Discharge Rx Participant: No New Discharge Prescriptions: No Action No Known Home Medications Discharge Medication List No Known Home Medications 07/26/23 [History] Follow up Appointment(s)/Referral(s): None,Stated [Primary Care Provider] - 1-2 days Activity/Diet/Wound Care/Special Instructions: grain shipper to call [facility] at discharge: [phone] - they can accept back but if discharged over the weekend, patient might need a cab. Discharge/Stand Alone Forms: Area PCPs Discharge Disposition: LEFT AGAINST MEDICAL ADVICE
== END 2023-07-28 09:41 | disposition left against medical advice (07) ==
LOC: EC 12:56 → 6NMEDSUR 14:36 → 4SSUR 21:00
PROVIDERS: ADMIT Hospitalist; ATTEND Hospitalist
DX: F10.239 Alcohol dependence with withdrawal, unspecified (principal); K85.90 Acute pancreatitis without necrosis or infection, unspecified; F17.210 Nicotine dependence, cigarettes, uncomplicated; F41.8 Other specified anxiety disorders; Z53.21 Procedure and treatment not carried out due to patient leaving prior to being seen by health care provider; Z81.3 Family history of other psychoactive substance abuse and dependence
CPT/HCPCS: 96366; 96376; 82075; 96365; 96372; 96375; 99285; 36415; 80053; 80076; 82607; 82746; 83690 ×2; 85025; 85027; G0378 ×4; S4990; J2060 ×2; J3411; J1885 ×2; C9113 ×2

== ENCOUNTER 2023-07-28 11:58 | Observation (INO) | payer OTHER ==
--- NOTE | 2023-07-28 12:09 | ED ---
Alcohol HPI - General Chief Complaint: Alcohol Stated Complaint: ETOH Time Seen by Provider: 07/28/23 12:07 Source: patient, EMS Mode of arrival: EMS Limitations: altered mental status - History of Present Illness Initial Comments: This is a 43-year-old male with a history of alcohol abuse was brought to the ER today via ambulance with police escort. Patient was here yesterday for alcohol intoxication but left AMA. EMS was called today patient had been drinking at home they found him in his bed covered in feces in his own urine. Police were concerned about the patient's ability to care for himself and attempting to drink himself to . Patient will be petitioned. - Related Data Home Medications Medication Instructions Recorded Confirmed No Known Home Medications 07/26/23 07/28/23 Allergies Allergy/AdvReac Type Severity Reaction Status Date / Time amoxicillin Allergy Swelling, Verified 07/28/23 19:10 rash Review of Systems ROS Statement: Those systems with pertinent positive or pertinent negative responses have been documented in the HPI. ROS Other: All systems not noted in ROS Statement are negative. Past Medical History Additional Past Medical History / Comment(s): Alcoholism with seizure in 2018 from withdrawal History of Any Multi-Drug Resistant Organisms: None Reported Past Surgical History: No Surgical Hx Reported Past Psychological History: Anxiety Smoking Status: Current every day smoker Past Alcohol Use History: Abuse, Daily, Heavy Past Drug Use History: None Reported - Past Family History Mother Family Medical History: No Reported History Additional Family Medical History / Comment(s): drug addict Father Additional Family Medical History / Comment(s): etoh General Exam - General Exam Comments Initial Comments: Physical Exam GENERAL: Disheveled HENT: Normocephalic, Atraumatic. EYES: PERRL, EOMI PULMONARY: Unlabored respirations CARDIOVASCULAR: Warm and well perfused extremities ABDOMEN: Non-distended : Deferred NEUROLOGIC: Slurred speech MUSCULOSKELETAL: Moving all extremities with no apparent injury - poor coordination PSYCHIATRIC: Agitated Limitations: altered mental status Course Vital Signs 07/28/23 07/28/23 12:01 20:02 Temperature 97.9 F Pulse Rate 107 H 100 Respiratory 18 16 Rate Blood Pressure 144/95 109/70 O2 Sat by Pulse 99 97 Oximetry Medical Decision Making - Medical Decision Making Was pt. sent in by a medical professional or institution (, PA, QUANTOMETER OPERATOR, urgent care, hospital, or longterm...) When possible be specific @ -No Did you speak to anyone other than the patient for history (EMS, parent, family, police, friend...)? What history was obtained from this source @ -EMS Did you review nursing and triage notes (agree or disagree)? Why? @ -I reviewed and agree with nursing and triage notes Were old charts reviewed (outside hosp., previous admission, EMS record, old EKG, old radiological studies, urgent care reports/EKG's, longterm records)? Report findings @ -Previous notes were reviewed Differential Diagnosis (chest pain, altered mental status, abdominal pain women, abdominal pain men, vaginal bleeding, weakness, fever, dyspnea, syncope, headache, dizziness, GI bleed, back pain, seizure, CVA, palpatations, mental health)? @ -Differential Mental Health Depression, anxiety, bipolar, psychosis, schizophrenia, borderline personality, situational depression, adjustment disorder, behavioral disorder, brain tumor, malingering, substance abuse, encephalopathy, medication reaction, dementia, hypothyroidism, degenerative neurologic disorder, lupus.... This is not meant to be all-inclusive list EKG interpreted by me (3pts min.). @ -As above X-rays interpreted by me (1pt min.). @ -None done CT interpreted by me (1pt min.). @ -No evidence of brain bleed or skull fracture U/S interpreted by me (1pt. min.). @ -None done What testing was considered but not performed or refused? (CT, X-rays, U/S, labs)? Why? @ -None What meds were considered but not given or refused? Why? @ -None Did you discuss the management of the patient with other professionals (professionals i.e. , PA, QUANTOMETER OPERATOR, lab, RT, psych nurse, neonatal social worker, shoulder sawyer, teacher, president and chief commercial officer, egg caser)? Give summary @ -No Was smoking cessation discussed for >3mins.? @ -No Was critical care preformed (if so, how long)? @ -No Were there social determinants of health that impacted care today? How? (Home lessness, low income, unemployed, alcoholism, drug addiction, transportation, low edu. Level, literacy, decrease access to med. care, usp, rehab)? @ -Alcohol addiction Was there de-escalation of care discussed even if they declined (Discuss DNR or withdrawal of care, Hospice)? DNR status @ -No What co-morbidities impacted this encounter? (DM, HTN, Smoking, COPD, CAD, Cancer, CVA, ARF, Chemo, Hep., AIDS, mental health diagnosis, sleep apnea, morbid obesity)? @ -Mental health Was patient admitted / discharged? Hospital course, mention meds given and route, prescriptions, significant lab abnormalities, going to OR and other pertinent info. @ -Admit Seen and evaluated, patient was petition by police. Patient's alcohol level is over 250 he will not be sober in the next 10 to 12 hours therefore be placed in observation. Undiagnosed new problem with uncertain prognosis? @ -No Drug Therapy requiring intensive monitoring for toxicity (Heparin, Nitro, Insulin, Cardizem)? @ -No Were any procedures done? @ -No Diagnosis/symptom? @ -Alcohol intoxication, mental health Acute, or Chronic, or Acute on Chronic? @ -Default Uncomplicated (without systemic symptoms) or Complicated (systemic symptoms)? @ -Default Side effects of treatment? @ -No Exacerbation, Progression, or Severe Exacerbation? @ -No Poses a threat to life or bodily function? How? (Chest pain, USA, DE, pneumonia, PE, COPD, DKA, ARF, appy, cholecystitis, CVA, Diverticulitis, Homicidal, Suicidal, threat to staff... and all critical care pts) @ -No - Lab Data Result diagrams: 07/28/23 13:55 07/28/23 13:55 Lab Results 07/28/23 07/28/23 07/28/23 Range/Units 13:15 13:55 13:55 WBC 4.1 (3.8-10.6) k/uL RBC 4.40 (4.30-5.90) m/uL Hgb 14.0 (13.0-17.5) gm/dL Hct 41.1 (39.0-53.0) % MCV 93.3 (80.0-100.0) fL MCH 31.8 (25.0-35.0) pg MCHC 34.1 (31.0-37.0) g/dL RDW 13.8 (11.5-15.5) % Plt Count 60 L (150-450) k/uL MPV 8.8 Neutrophils % 64 % Lymphocytes % 21 % Monocytes % 10 % Eosinophils % 1 % Basophils % 1 % Neutrophils # 2.6 (1.3-7.7) k/uL Lymphocytes # 0.9 L (1.0-4.8) k/uL Monocytes # 0.4 (0-1.0) k/uL Eosinophils # 0.0 (0-0.7) k/uL Basophils # 0.0 (0-0.2) k/uL Manual Slide Review Performed RBC Morphology Normal Sodium 143 (137-145) mmol/L Potassium 3.2 L (3.5-5.1) mmol/L Chloride 107 (98-107) mmol/L Carbon Dioxide 25 (22-30) mmol/L Anion Gap 11 mmol/L BUN 7 L (9-20) mg/dL Creatinine 0.62 L (0.66-1.25) mg/dL Est GFR (CKD-EPI)AfAm >90 (>60 ml/min/1.73 sqM) Est GFR (CKD-EPI)NonAf >90 (>60 ml/min/1.73 sqM) Glucose 84 (74-99) mg/dL Calcium 9.2 (8.4-10.2) mg/dL Total Bilirubin 1.0 (0.2-1.3) mg/dL AST 107 H (17-59) U/L ALT 84 H (4-49) U/L Alkaline Phosphatase 192 H (38-126) U/L Total Protein 6.4 (6.3-8.2) g/dL Albumin 4.1 (3.5-5.0) g/dL Salicylates <1.0 mg/dL Urine Opiates Screen Not Detected (NotDetected) Ur Oxycodone Screen Not Detected (NotDetected) Urine Methadone Screen Not Detected (NotDetected) Acetaminophen <10.0 ug/mL Ur Barbiturates Screen Not Detected (NotDetected) U Tricyclic Antidepress Not Detected (NotDetected) Ur Phencyclidine Scrn Not Detected (NotDetected) Ur Amphetamines Screen Not Detected (NotDetected) U Methamphetamines Scrn Not Detected (NotDetected) U Benzodiazepines Scrn Detected H (NotDetected) Urine Cocaine Screen Not Detected (NotDetected) U Marijuana (THC) Screen Not Detected (NotDetected) Serum Alcohol 256 H* mg/dL Disposition Clinical Impression: Alcohol intoxication, Alcohol use disorder, severe, dependence Disposition: ADMITTED IP TO THIS HOSP Condition: Fair Is patient prescribed a controlled substance at d/c from ED?: No
[2023-07-28 14:14] LABS: Basophils % (A) 1 %; Eosinophils % (A) 1 %; HCT 41.1 % (39.0-53.0); Lymphocytes # (A) 0.9 k/uL (1.0-4.8); Lymphocytes % (A) 21 %; MCH 31.8 pg (25.0-35.0); MCHC 34.1 g/dL (31.0-37.0); MCV 93.3 fL (80.0-100.0); Mean Platelet Volume 8.8; Monocytes # (A) 0.4 k/uL (0-1.0); Monocytes % (A) 10 %; Neutrophils # (A) 2.6 k/uL (1.3-7.7); Neutrophils % (A) 64 %; RDW 13.8 % (11.5-15.5); WBC 4.1 k/uL (3.8-10.6)
[2023-07-28 14:24] LABS: ALT 84 U/L (4-49); AST 107 U/L (17-59); Acetaminophen <10.0 ug/mL; African American GFR (CKD) >90 (>60 ml/min/1.73 sqM); Albumin 4.1 g/dL (3.5-5.0); Alkaline Phosphatase 192 U/L (38-126); Anion Gap 11 mmol/L; Blood Urea Nitrogen 7 mg/dL (9-20); Calcium 9.2 mg/dL (8.4-10.2); Carbon Dioxide 25 mmol/L (22-30); Chloride 107 mmol/L (98-107); Glucose 84 mg/dL (74-99); Non-African American GFR(CKD) >90 (>60 ml/min/1.73 sqM); Potassium 3.2 mmol/L (3.5-5.1); Salicylate <1.0 mg/dL; Sodium 143 mmol/L (137-145); Total Protein 6.4 g/dL (6.3-8.2)
[2023-07-28 14:39] LABS: Alcohol 256 mg/dL
[2023-07-28 15:32] LABS: Platelet Count 60 k/uL (150-450); RBC Morphology Normal
--- NOTE | 2023-07-28 15:56 | CT ---
EXAMINATION TYPE: CT brain cspine wo con CT DLP: 1297.6 mGycm, Automated exposure control for dose reduction was used. DATE OF EXAM: 07/28/2023 3:32 PM COMPARISON: None. CLINICAL INDICATION:Male, 43 years old with history of drunk, fall from chair onto face; Drunk, fall from chair onto face TECHNIQUE: Brain: Multiple axial CT images of the brain were obtained without IV contrast. Cspine: Axial CT images from the skull base to the inferior aspect of T2 we obtained without intraven ous contrast. Coronal and sagittal reformatted images were also reviewed. FINDINGS: Brain: Extra-axial spaces: No abnormal extra-axial fluid collections. Ventricular system: Within normal limits Cerebral parenchyma: No acute intraparenchymal hemorrhage or mass effect. The serrano-white junction is well differentiated. Cerebellum: Unremarkable. Mass effect: No evidence of midline shift. Intracranial vasculature: unremarkable Soft tissues: Normal. Calvarium/osseous structures: No depressed skull fracture. Paranasal sinuses and mastoid air cells: Clear. Visualized orbits: Orbital contents are intact. Cervical spine: Fracture: None. Osseous structures: Minimal osteophyte formation and facet and uncovertebral joint arthropathy throug hout the visualized spine. Nonfusion of the posterior arch of C1. Vertebral alignment: Within normal limits. Spinal canal/Neural Foramina: No evidence of significant spinal canal narrowing. No evidence for sign ificant neural foraminal stenosis. Neck soft tissues: Prevertebral soft tissues are within normal limits. Other: The airway is patent. The lung apices are clear. IMPRESSION: 1. No acute intracranial process. 2. No evidence of cervical spine fracture. 3. Mild multilevel degenerative disc disease.
[2023-07-28] MEDS: NICOTINE 21MG/24HR PATCH TRANSDERM STA (17:48)
[2023-07-28] MEDS ORDERED: NALOXONE 0.4 MG/ML 1 ML VIAL IV PRN (17:53)
[2023-07-28 18:26] LABS: Amphetamine Screen,Urine Not Detected (NotDetected); Barbiturate Screen,Urine Not Detected (NotDetected); Benzodiazepines Screen,Urine Detected (NotDetected); Cocaine Screen,Urine Not Detected (NotDetected); Methadone Screen, Urine Not Detected (NotDetected); Opiate Screen,Urine Not Detected (NotDetected); Phencyclidine Screen,Urine Not Detected (NotDetected); Tricyclic Antidepressant,Urine Not Detected (NotDetected); Urn Cannabinoid Scrn Not Detected (NotDetected)
[2023-07-28 18:44] LABS: Oxycodone Screen, Urine Not Detected (NotDetected)
[2023-07-28] MEDS ORDERED: LORazepam 1 MG/0.5 ML VIAL IV PRN (20:40)
[2023-07-28] MEDS ORDERED: LORazepam 0.5 MG TAB PO PRN (20:40)
[2023-07-28] MEDS ORDERED: LORazepam 1 MG TAB PO PRN ×3 (20:40)
[2023-07-28] MEDS: NICOTINE GUM (POLACRILEX) 2 MG GUM BUCCAL STA (20:45)
[2023-07-28] MEDS: POTASSIUM CHLORIDE ER 20 MEQ TAB.ER PO STA (22:52)
[2023-07-28] MEDS: THIAMINE 100 MG/ML 2 ML VIAL IM STA (22:52)
[2023-07-29] MEDS: LORazepam 1 MG/0.5 ML VIAL IV PRN ×2 (01:29→09:01)
[2023-07-29] MEDS: THIAMINE 100 MG TAB PO SCH (09:00)
--- NOTE | 2023-07-29 12:15 | P.CN ---
Psychiatric Consult - . Consult date: 07/29/23 Consult:: 07/29/23 12:09 This is a psychiatric assessment on Ric Floyd who is a 43-year-old male with long history of alcohol abuse and dependency A Anika reports that he was trying to get into the [facility] treatment program Patient reports that they've presses bili at that time and that seemed to irritated him when asked about the reason for being in the hospital Patient however denies any suicidal or homicidal ideations or plans He says that he does have a problem with alcohol which is chronic He says that his father passed about a month ago but that he is coping and seemed to be using that as an excuse for his alcohol and abuse He says that he takes care of himself although he drank somewhat too much that the day when asked about the incontinence with urine and feces He says that he usually does not get into such trouble 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 Patient reports that he is try to get some help with the past for his alcohol use but has never followed through Patient denies going to any specifics regarding his family information Mental status examination: General Appearance: Patient appears to be stated age is alert, and attempts to cooperate. Patient appears to have fair hygiene and grooming. Patient has no body odor Behavior: Patient is sitting up without any agitated behavior. Speech: Patient's speech is fluent and nonpressured. Mood/Affect: Patient reports his mood is fine Suicidality/Homicidality: Patient denies having any homicidal ideation intent or plan. Denies any suicidal ideations intent or plan at this time Perceptions: No auditory or visual hallucinations Though content/process: There is no evidence of any delusional thought content and thought process is abstract Memory and concentration: AOX3, grossly intact for the purposes of this session. Judgment and insight: Has insight diagnostic impression: Adjustment disorder with mixed emotional features Alcohol use disorder chronic with acute exacerbation Acute grief reaction mild sTRENGTHS/WEAKNESSES: Strength is that the patient is resilient. Patient has family support Weakness is that the patient has chronic alcohol use disorder INTELLECT: average Plan: The patient does not meet the criteria for inpatient psychiatric hospitalization patient is recommended to pursue his the current plan to get back into his substance use program at [facility] and other facilities Would recommend socially responsible investment adviser to talk to the patient regarding further help Patient reports that he is waiting for his approval from me before he can proceed for this substance use program procurement services manager will be involved for appropriate discharge planning thank you very much for kind referral please refer to contact me if any further questions Varinder Donaldson M.D.
[2023-07-29] MEDS: NICOTINE 21MG/24HR PATCH TRANSDERM SCH (13:26)
--- NOTE | 2023-07-30 05:42 | P.HPIM ---
History of Present Illness Patient is a pleasant 43 years old male who presents because of alcohol use disorder wanting to detox. Patient was with similar diagnosis yesterday left AMA. He went f home and found by police in bed hygiene situation suspected he wanted to kill himself by drinking so he was admitted to the hospital and the petitioned. Patient today is awake alert he denies any suicidal ideation. Also has been evaluated by psychiatrist during last admission and this admission and he does not meet criteria for inpatient mental health unit. When I asked him why he left AMA he told me he wanted to smoke cigarettes. Nicotine patch was ordered. Patient also with a PICC line and placed on some IV fluids and GI prophylaxis Currently he is calm denies any other new complaint He is hemodynamically stable Labs noted, mild hypokalemia replaced and monitor electrolytes liver enzymes mildly elevated Review of Systems Review of systems CONSTITUTIONAL: No fever, no malaise, no fatigue. HEENT: No recent visual problems or hearing problems. Denied any sore throat. CARDIOVASCULAR: No orthopnea, PND, no palpitations, no syncope. PULMONARY: No shortness of breath, no cough, no hemoptysis. GASTROINTESTINAL: No diarrhea, no nausea, no vomiting, no abdominal pain. Normoactive bowel sounds. NEUROLOGICAL: No headaches, no weakness, no numbness. HEMATOLOGICAL: Denies any bleeding or petechiae. GENITOURINARY: Denies any burning micturition, frequency, or urgency. MUSCULOSKELETAL/RHEUMATOLOGICAL: Denies any joint pain, swelling, or any muscle pain. ENDOCRINE: Denies any polyuria or polydipsia. Past Medical History Additional Past Medical History / Comment(s): Alcoholism with seizure in 2018 from withdrawal History of Any Multi-Drug Resistant Organisms: None Reported Past Surgical History: No Surgical Hx Reported Past Psychological History: Anxiety Smoking Status: Current every day smoker Past Alcohol Use History: Abuse, Daily, Heavy Additional Past Alcohol Use History / Comment(s): currently drinking a 5th of vodka daily since . Was sober for 6months prior to . Past Drug Use History: None Reported - Past Family History Mother Family Medical History: No Reported History Additional Family Medical History / Comment(s): drug addict Father Additional Family Medical History / Comment(s): etoh Medications and Allergies Home Medications Medication Instructions Recorded Confirmed Type No Known Home Medications 07/26/23 07/28/23 History Allergies Allergy/AdvReac Type Severity Reaction Status Date / Time amoxicillin Allergy Swelling, Verified 07/28/23 19:10 rash Physical Exam Vitals: Vital Signs Temp Pulse Pulse Resp BP BP BP 07/29/23 07:36 99.9 F H 77 160/92 07/29/23 02:00 92 07/29/23 01:00 98.0 F 102 H 17 127/80 07/28/23 22:30 102 H 07/28/23 20:45 98.9 F 88 16 117/74 07/28/23 20:02 100 16 109/70 07/28/23 12:01 97.9 F 107 H 18 144/95 Pulse Ox 07/29/23 07:36 98 07/29/23 02:00 07/29/23 01:00 98 07/28/23 22:30 07/28/23 20:45 97 07/28/23 20:02 97 07/28/23 12:01 99 Intake and Output 07/28/23 07/29/23 07/29/23 22:59 06:59 14:59 Other: # Voids 0 2 Weight 68.039 kg GENERAL: The patient is alert and oriented x3, not in any acute distress. Well developed, well nourished. HEENT: Pupils are round and equally reacting to light. EOMI. No scleral icterus. No conjunctival pallor. Normocephalic, atraumatic. No pharyngeal erythema. No thyromegaly. CARDIOVASCULAR: S1 and S2 present. No murmurs, rubs, or gallops. PULMONARY: Chest is clear to auscultation, no wheezing , no crackles. ABDOMEN: Soft, nontender, nondistended, normoactive bowel sounds. No palpable organomegaly. MUSCULOSKELETAL: No joint swelling or deformity. EXTREMITIES: No cyanosis, clubbing, or pedal edema. NEUROLOGICAL: Gross neurological examination did not reveal any focal deficits. SKIN: No rashes. no petechiae. Results CBC & Chem 7: 07/28/23 13:55 07/28/23 13:55 Labs: Abnormal Lab Results - Last 24 Hours (Table) 07/28/23 07/28/23 07/28/23 Range/Units 13:15 13:55 13:55 Plt Count 60 L (150-450) k/uL Lymphocytes # 0.9 L (1.0-4.8) k/uL Potassium 3.2 L (3.5-5.1) mmol/L BUN 7 L (9-20) mg/dL Creatinine 0.62 L (0.66-1.25) mg/dL AST 107 H (17-59) U/L ALT 84 H (4-49) U/L Alkaline Phosphatase 192 H (38-126) U/L U Benzodiazepines Scrn Detected H (NotDetected) Serum Alcohol 256 H* mg/dL Thrombosis Risk Factor Assmnt - Choose All That Apply Any of the Below Risk Factors Present?: Yes Each Factor Represents 1 point: Age 41-60 years Other Risk Factors: No Other congenital or acquired thrombophilia - If yes, enter type in comment: No Thrombosis Risk Factor Assessment Total Risk Factor Score: 1 Thrombosis Risk Factor Assessment Level: Low Risk Assessment and Plan Assessment: Alcohol use disorders with risk of alcohol withdrawal, delirium tremens Alcoholic pancreatitis,mild, improved Alcoholic transaminitis Patient looks depressed Plan: Start CIWA protocol Thiamine Normal saline at 75 mL/h advance diet Pain medication, currently on ibuprofen as needed Psychiatric evaluation is requested GI and DVT prophylaxis with Protonix and subcutaneous heparin
[2023-07-30] MEDS ORDERED: DEXTROSE 5%-0.45% NACL 1,000 ML IV SCH (05:45)
[2023-07-30] MEDS: IBUPROFEN 400 MG TAB PO PRN (06:12)
[2023-07-30] MEDS: SODIUM CHLORIDE 0.9% 1,000 ML IV SCH (06:13)
[2023-07-30 08:03] LABS: ALT 62 U/L (4-49); AST 66 U/L (17-59); African American GFR (CKD) >90 (>60 ml/min/1.73 sqM); Albumin 3.6 g/dL (3.5-5.0); Albumin/Globulin Ratio 1.5; Alkaline Phosphatase 143 U/L (38-126); Anion Gap 5 mmol/L; Bilirubin,Unconjugated 0.7 mg/dL (0.0-1.1); Blood Urea Nitrogen 9 mg/dL (9-20); Calcium 9.3 mg/dL (8.4-10.2); Carbon Dioxide 27 mmol/L (22-30); Chloride 103 mmol/L (98-107); Globulin 2.4 g/dL; Glucose 197 mg/dL (74-99); Magnesium 1.8 mg/dL (1.6-2.3); Non-African American GFR(CKD) >90 (>60 ml/min/1.73 sqM); Potassium 3.4 mmol/L (3.5-5.1); Sodium 135 mmol/L (137-145); Total Bilirubin 1.1 mg/dL (0.2-1.3)
[2023-07-30 08:06] VITALS: PULSE 85
[2023-07-30 10:14] VITALS: RESP 16
[2023-07-30] MEDS: POTASSIUM CHLORIDE ER 10 MEQ TAB.ER.PRT PO SCH (10:14)
[2023-07-30 14:21] VITALS: BP 128/84; TEMP 99.3
--- NOTE | 2023-07-31 16:01 | P.DS ---
Providers Date of admission: 07/28/23 17:53 Attending physician: Madyson Hong Consults: 07/28/23 17:53 Consult Physician Routine Consulting Provider: Varinder Donaldson Reason/Comments: petitioned, inability to care for self, suicidal Do you want consulting provider notified?: Yes, Notify in am Primary care physician: Stated None Hospital Course: Final Diagnosis Alcohol use disorders with risk of alcohol withdrawal, delirium tremens Alcoholic pancreatitis,mild, improved Alcoholic transaminitis Patient looks depressed no recommendations for inpatient mental health treatment. Discharge Disposition Stable for discharge home with overall guarded prognosis. Patient has started the authorization process for admittance to [facility]. He is unable to be admitted at this time. He was evaluated by psychiatry with no recommendations made for inpatient medical mental health treatment. Patient is not experiencing any withdrawal symptoms at this time. He will be discharged home. Given outpatient resources for help with quitting alcohol. Hospital Course Patient is a pleasant 43 years old male who presents because of alcohol use disorder wanting to detox. Patient was with similar diagnosis yesterday left AMA. He went f home and found by police in bed hygiene situation suspected he wanted to kill himself by drinking so he was admitted to the hospital and the petitioned. Patient today is awake alert he denies any suicidal ideation. Also has been evaluated by psychiatrist during last admission and this admission and he does not meet criteria for inpatient mental health unit. When I asked him why he left AMA he told me he wanted to smoke cigarettes. Nicotine patch was ordered. Patient receiving IV fluids at this time. Currently he is calm denies any other new complaint. He is hemodynamically stable Labs noted, mild hypokalemia replaced and monitor electrolytes liver enzymes mildly elevated. His LFTs are improving. He was evaluated by psychiatry with on recommendations for inpatient mental health treatment. He has called [facility] and started the process for admittance. He is not having any chest pain, no shortness of breath. Currently no nausea, vomiting or diarrhea. He has required ativan about every 6 to 7 hours. Remains hemodynamically stable. He will be discharge home. Please see medication reconciliation for a list of current medications. Thank you for allowing us to participate in the care of this patient. The impression and plan of care has been dictated by Kenia Flower, Nurse Practitioner as directed. Dr. Ilana MD I have performed a history and physical examination and medical decision making of this patient, discussed the same with the dictator, and agree with the dictators assessment and plan as written, documented as a scribe. Based on total visit time, I have performed more than 50% of this visit. Patient Condition at Discharge: Fair Plan - Discharge Summary New Discharge Prescriptions: New Nicotine 21Mg/24Hr Patch [Habitrol] 1 patch TRANSDERM DAILY #7 patch Thiamine [Vitamin B-1] 100 mg PO DAILY #30 tab Pantoprazole [Protonix] 40 mg PO DAILY #30 tab Discharge Medication List Nicotine 21Mg/24Hr Patch [Habitrol] 1 patch TRANSDERM DAILY #7 patch 07/30/23 [Rx] Pantoprazole [Protonix] 40 mg PO DAILY #30 tab 07/30/23 [Rx] Thiamine [Vitamin B-1] 100 mg PO DAILY #30 tab 07/30/23 [Rx] Follow up Appointment(s)/Referral(s): None,Stated [Primary Care Provider] - 1-2 days Discharge/Stand Alone Forms: AA Meetings [facility], AA Meetings [place], [facility], Who Do I Call?, Community Resources, Outpatient Counseling, Inp Substance Abuse Facilities, Area PCPs
== END 2023-07-30 16:00 ==
LOC: EC 11:58 → 6NMEDSUR 17:53
PROVIDERS: ADMIT Hospitalist; ATTEND Hospitalist
DX: F10.229 Alcohol dependence with intoxication, unspecified (principal); E87.6 Hypokalemia; Z81.3 Family history of other psychoactive substance abuse and dependence; Z76.5 Malingerer [conscious simulation]; Z63.72 Alcoholism and drug addiction in family; Z53.29 Procedure and treatment not carried out because of patient's decision for other reasons; Y90.8 Blood alcohol level of 240 mg/100 ml or more
CPT/HCPCS: 96374; 96376 ×2; 82075; 99285; 36415; 97162; 80053; 80048; 80076; 83735; 85025; 80306; 80143; 80320; 87636; 80179; 72125; 70450; G0378 ×3; S4990 ×3; J2060 ×2